=== PATIENT | female | born 1940 | race Caucasian/White ===

== ENCOUNTER 2016-11-11 20:14 | Inpatient (IN) | payer MEDICARE ==
[2016-11-11 22:34] LABS: BASO % 0.2 % (0.0-2.0); EOS % 0.2 % (0.0-4.0); HEMATOCRIT 42.2 % (34.0-47.0); LYMPH # 1.4 K/uL (1.0-4.3); LYMPH % 10.7 % (20.0-40.0); MEAN CELL VOLUME 92.8 fL (81.0-99.0); MEAN CORPUSCULAR HEMOGLOBIN 30.4 pg (27.0-31.0); MEAN CORPUSCULAR HGB CONC 32.7 g/dL (33.0-37.0); MEAN PLATELET VOLUME 8.5 fL (7.2-11.7); MONO # 0.7 K/uL (0.0-0.8); MONO % 5.2 % (0.0-10.0); RED CELL DISTRIBUTION WIDTH 14.3 % (11.5-14.5); WHITE BLOOD COUNT 13.1 K/uL (4.8-10.8)
[2016-11-11 22:40] LABS: CHLORIDE 103 mmol/L (98-107)
[2016-11-11 22:41] LABS: POTASSIUM 3.9 mmol/L (3.6-5.2); SODIUM 141 mmol/L (132-148)
[2016-11-11] MEDS ORDERED: HYDROmorphone 0.5 mg/0.5 ml ISec IVP STA (22:41)
[2016-11-11 22:43] LABS: ALB/GLOB RATIO 1.4 (1.0-2.1); ALKALINE PHOSPHATASE 55 U/L (38-126); ALT/SGPT 25 U/L (9-52); AST/SGOT 31 U/L (14-36); BILIRUBIN,TOTAL 0.3 mg/dL (0.2-1.3); BLOOD UREA NITROGEN 24 mg/dL (7-17); CARBON DIOXIDE 25 mmol/L (22-30); GFR AFRICAN-AMERICAN > 60; TOTAL PROTEIN 7.1 g/dL (6.3-8.3)
[2016-11-11 22:44] LABS: CALCIUM 8.8 mg/dl (8.6-10.4); GLUCOSE,RANDOM 103 mg/dL (65-105)
--- NOTE | 2016-11-11 22:58 | C.PDOC ---
History Of Present Illness 76 year old female presents to the ED with complaints of left hip pain after falling from standing at home. Patient was able to crawl to telephone to call EMS. She has a history of a right hip fracture and replacement by Dr. Kulwinder Winston. Patient denies any other complaints at this time. Time Seen by Provider: 11/11/16 22:02 Chief Complaint (Nursing): Trauma History Per: Patient History/Exam Limitations: no limitations Onset/Duration Of Symptoms: Hrs Current Symptoms Are (Timing): Still Present Additional History Per: EMS - Hip Description Of Injury: Fell Past Medical History Reviewed: Historical Data, Nursing Documentation, Vital Signs Vital Signs: Last Vital Signs Temp 97.8 F 11/11/16 20:29 Pulse 64 11/11/16 20:29 Resp 18 11/11/16 20:29 BP 123/65 11/11/16 20:29 Pulse Ox 96 11/11/16 23:53 - Medical History PMH: Anxiety, Arthritis, COPD, HTN, Hypercholesterolemia Surgical History: Cholecystectomy Family History: States: No Known Family Hx - Social History Hx Tobacco Use: Yes Hx Alcohol Use: No Hx Substance Use: No - Immunization History Hx Tetanus Toxoid Vaccination: No Hx Influenza Vaccination: Yes Hx Pneumococcal Vaccination: No Review Of Systems Constitutional: Negative for: Fever, Chills, Sweats Respiratory: Negative for: Cough, Shortness of Breath Gastrointestinal: Negative for: Nausea, Vomiting, Abdominal Pain, Diarrhea Physical Exam - Physical Exam Appears: Non-toxic, No Acute Distress Skin: Warm, Dry Head: Other (mild left occipital contusion ) Neck: Supple Cardiovascular: Rhythm Regular Respiratory: No Rales, No Rhonchi, No Stridor, No Wheezing Gastrointestinal/Abdominal: Soft, No Tenderness, No Distention, No Guarding, No Rebound Extremity: Tenderness (left hip tenderness. left leg shortened and rotated ) ED Course And Treatment - Laboratory Results Result Diagrams: 11/11/16 22:28 11/11/16 22:28 Lab Interpretation: Abnormal (mild leukocytosis (prob realted to fall), UA neg.) ECG: Interpreted By Me ECG Rhythm: Sinus Rhythm Interpretation Of ECG: Normal Sinus Rhythm 77 O2 Sat by Pulse Oximetry: 96 (room air ) - Radiology CXR: Interpreted by Me CXR Interpretation: Yes: No Acute Disease - Other Rad L hip X-Ray: Interpreted by Me (+ femoral neck fx, no pelvic fx) Reevaluation Time: 22:56 Reassessment Condition: Improved - Physician Consult Information Outcome Of Conversation: 2299: d/w Dr. Nico Villalba- PMD- ok to med/surg. 2299: text to Dr. Aamir Winston (Orthopedics who performed the pt's R hip fx/ replacement) will be on Consult Medical Decision Making Medical Decision Making: fall from standing, tripped and fell, no pre-syncopal head CT neg. 0000: though many narcotics "allergies" usually rash, the pt tolerated Dilaudid IV without consequence. Disposition Doctor Will See Patient In The: Hospital Counseled Patient/Family Regarding: Studies Performed, Diagnosis - Disposition Disposition: HOSPITALIZED Disposition Time: 22:59 Condition: GOOD - Clinical Impression Clinical Impression: Hip fracture, left - Scribe Statement The provider has reviewed the documentation as recorded by the Scribe Aleyda Cardozo All medical record entries made by the Scribe were at my direction and personally dictated by me. I have reviewed the chart and agree that the record accurately reflects my personal performance of the history, physical exam, medical decision making, and the department course for this patient. I have also personally directed, reviewed, and agree with the discharge instructions and disposition.
--- NOTE | 2016-11-11 23:22 | CT ---
EXAM: CT Head Without Intravenous Contrast CLINICAL HISTORY: 76 years old, female; Injury or trauma; Fall; Initial encounter; Abrasion; Head, generalized; Additional info: Fall from standing, l occiput contusion TECHNIQUE: Axial computed tomography images of the head/brain without intravenous contrast. This CT exam was performed using one or more of the following dose reduction techniques: automated exposure control, adjustment of the mA and/or kV according to patient size, and/or use of iterative reconstruction technique. EXAM DATE/TIME: 11/11/2016 10:07 PM COMPARISON: No relevant prior studies available. FINDINGS: There is subcutaneous soft tissue swelling left parietal region. No intracranial hemorrhage. No extra axial collections. No intracranial edema. Trace mucosal thickening sphenoid sinuses. No depressed fractures. IMPRESSION: No acute intracranial injury.
[2016-11-11 23:30] LABS: RBC URINE 1 /hpf (0-3); URINE BACTERIA OCC (<OCC); URINE BILIRUBIN NEGATIVE (NEGATIVE); URINE BLOOD NEGATIVE (NEGATIVE); URINE COLOR Yellow (YELLOW); URINE GLUCOSE (UA) NORMAL (Normal); URINE KETONE NEGATIVE (NEGATIVE); URINE LEUKOCYTE ESTERASE TRACE Leu/uL (Negative); URINE PROTEIN NEGATIVE (NEGATIVE); URINE UROBILINOGEN NORMAL mg/dL (0.2-1.0); WBC URINE 4 /hpf (0-5)
[2016-11-12] MEDS ORDERED: ceFAZolin IV 2 gm in Dextrose 50 ML IVPB SCH (01:15)
[2016-11-12] MEDS: HYDROmorphone 1 mg/ml ISec IVP PRN (05:19)
[2016-11-12 06:59] LABS: CHLORIDE 106 mmol/L (98-107); POTASSIUM 3.8 mmol/L (3.6-5.2); SODIUM 141 mmol/L (132-148)
[2016-11-12 07:01] LABS: MEAN CELL VOLUME 92.6 fL (81.0-99.0); MEAN CORPUSCULAR HEMOGLOBIN 30.5 pg (27.0-31.0); MEAN CORPUSCULAR HGB CONC 32.9 g/dL (33.0-37.0); MEAN PLATELET VOLUME 8.8 fL (7.2-11.7); RED CELL DISTRIBUTION WIDTH 14.2 % (11.5-14.5); WHITE BLOOD COUNT 9.4 K/uL (4.8-10.8)
[2016-11-12 07:02] LABS: BLOOD UREA NITROGEN 23 mg/dL (7-17); CALCIUM 8.7 mg/dl (8.6-10.4); CARBON DIOXIDE 23 mmol/L (22-30); GFR AFRICAN-AMERICAN > 60; GLUCOSE,RANDOM 105 mg/dL (65-105)
[2016-11-12 07:32] LABS: INR 1.1
[2016-11-12] MEDS: Ranolazine 500 mg Extended Release Tablets PO SCH (09:00)
[2016-11-12] MEDS: Pantoprazole 40 mg EC Tab PO SCH (09:19)
[2016-11-12] MEDS: Enoxaparin 40 mg Syringe SC SCH (10:00)
[2016-11-12] MEDS ORDERED: Ergocalciferol 50,000 Intl Units Cap PO SCH (10:00)
--- NOTE | 2016-11-12 10:08 | RAD ---
PROCEDURE: CHEST RADIOGRAPH, 1 VIEW HISTORY: SOB COMPARISON: 07/29/2012 FINDINGS: LUNGS: Interstitial markings are slightly increased and coarsened which may in part be due to low lung volumes PLEURA: No pneumothorax or pleural fluid seen. CARDIOVASCULAR: Cardiomegaly. OSSEOUS STRUCTURES: No significant abnormalities. VISUALIZED UPPER ABDOMEN: Normal. OTHER FINDINGS: None. IMPRESSION: Interstitial markings are slightly increased and coarsened which may in part be due to low lung volumes
[2016-11-12 10:33] LABS: RBC URINE < 1 /hpf (0-3); URINE BILIRUBIN NEGATIVE (NEGATIVE); URINE BLOOD NEGATIVE (NEGATIVE); URINE COLOR Yellow (YELLOW); URINE GLUCOSE (UA) NORMAL (Normal); URINE KETONE NEGATIVE (NEGATIVE); URINE LEUKOCYTE ESTERASE NEG Leu/uL (Negative); URINE PROTEIN NEGATIVE (NEGATIVE); URINE UROBILINOGEN NORMAL mg/dL (0.2-1.0); WBC URINE < 1 /hpf (0-5)
--- NOTE | 2016-11-12 10:53 | RAD ---
PROCEDURE: Pelvis left hip HISTORY: fall to L hip, ? fx COMPARISON: 09/16/2016 TECHNIQUE: Frontal view of the pelvis and frogleg lateral view left hip FINDINGS: Subcapital fracture with superior distraction/ displacement of the larger proximal femoral component and varus angulation. IMPRESSION: Subcapital fracture left femoral neck as above
--- NOTE | 2016-11-12 14:10 | CP.PCM.HP ---
History of Present Illness - History of Present Illness History of Present Illness: 76-year-old female with past medical history of hypertension, prior cardiac w/u included cardiac cath x 3, latest about 4 years ago with nonsignificant CAD, presented to the ED with complaints of left hip pain after falling from standing at home. Patient was able to crawl to telephone to call EMS. She has a history of right hip fracture and replacement by Dr. Kulwinder Winston. Patient denies any other complaints at this time. Present on Admission - Present on Admission Any Indicators Present on Admission: No Past Patient History - Infectious Disease Hx of Infectious Diseases: None - Past Social History Smoking Status: Light Smoker < 10 Cigarettes Daily - CARDIAC Hx Hypercholesterolemia: Yes Hx Hypertension: Yes - PULMONARY Hx Chronic Obstructive Pulmonary Disease (COPD): Yes - NEUROLOGICAL Hx Neurological Disorder: No - HEENT Hx HEENT Problems: No - RENAL Hx Chronic Kidney Disease: No - ENDOCRINE/METABOLIC Hx Endocrine Disorders: No - HEMATOLOGICAL/ONCOLOGICAL Hx Blood Disorders: No Hx Cancer: Yes (Right mastectomy) - INTEGUMENTARY Hx Dermatological Problems: No - MUSCULOSKELETAL/RHEUMATOLOGICAL Hx Falls: Yes - GASTROINTESTINAL Hx Gastrointestinal Disorders: Yes Hx Gastroesophageal Reflux: Yes - GENITOURINARY/GYNECOLOGICAL Hx Genitourinary Disorders: No - PSYCHIATRIC Hx Substance Use: No - SURGICAL HISTORY Hx Cholecystectomy: Yes - ANESTHESIA Hx Anesthesia: Yes Hx Anesthesia Reactions: No Hx Malignant Hyperthermia: No Meds Home Medications: Home Medication List Medication Instructions Recorded Confirmed Type ALPRAZolam [Xanax] 1 mg PO HS tab 11/15/16 Rx Enoxaparin [Lovenox] 40 mg SC DAILY syr 11/15/16 Rx Metoprolol Tartrate [Lopressor] 50 mg PO BID tab 11/15/16 Rx Pantoprazole [Protonix EC Tab] 40 mg PO DAILY ect 11/15/16 Rx Ranolazine [Ranexa] 1,[address] 11/15/16 Rx Rosuvastatin Calcium [Crestor] 5 mg PO HS tab 11/15/16 Rx amLODIPine [Norvasc] 10 mg PO DAILY tab 11/15/16 Rx Allergies/Adverse Reactions: Allergies Allergy/AdvReac Type Severity Reaction Status Date / Time acetaminophen [From Percocet] Allergy RASH Verified 02/04/17 09:45 codeine Allergy RASH Verified 02/04/17 09:45 morphine Allergy RASH Verified 02/04/17 09:45 oxycodone Allergy RASH Verified 02/04/17 09:45 oxycodone HCl [From Percocet] Allergy RASH Verified 02/04/17 09:45 shellfish derived Allergy RASH Verified 02/04/17 09:45 Physical Exam - Constitutional Appears: Well - Head Exam Head Exam: ATRAUMATIC, NORMAL INSPECTION, NORMOCEPHALIC - Eye Exam Eye Exam: EOMI, Normal appearance, PERRL Pupil Exam: NORMAL ACCOMODATION, PERRL - ENT Exam ENT Exam: Mucous Membranes Moist, Normal Exam - Neck Exam Neck exam: Positive for: Normal Inspection - Respiratory Exam Respiratory Exam: Decreased Breath Sounds - Cardiovascular Exam Cardiovascular Exam: REGULAR RHYTHM, +S1, +S2 - GI/Abdominal Exam GI & Abdominal Exam: Diminished Bowel Sounds, Soft - Rectal Exam Rectal Exam: Deferred Results - Vital Signs Recent Vital Signs: Last Vital Signs Temp 98.5 F 11/12/16 00:45 Pulse 77 11/12/16 07:30 Resp 18 11/12/16 00:45 BP 126/77 11/12/16 00:45 Pulse Ox 95 11/12/16 00:45 - Labs Result Diagrams: 11/15/16 06:30 11/15/16 06:47 Labs: Laboratory Results - last 24 hr 11/11/16 11/12/16 11/12/16 23:31 06:40 10:26 WBC 9.4 RBC 4.43 Hgb 13.5 Hct 41.0 MCV 92.6 MCH 30.5 MCHC 32.9 L RDW 14.2 Plt Count 229 MPV 8.8 PT 12.1 INR 1.1 APTT 30 Sodium 141 Potassium 3.8 Chloride 106 Carbon Dioxide 23 Anion Gap 16 BUN 23 H Creatinine 0.7 Est GFR ( Amer) > 60 Est GFR (Non-Af Amer) > 60 Random Glucose 105 Calcium 8.7 Urine Color Yellow Yellow Urine Clarity Clear Clear Urine pH 6.0 5.0 Ur Specific [place] 1.015 1.017 Urine Protein Negative Negative Urine Glucose (UA) Normal Normal Urine Ketones Negative Negative Urine Blood Negative Negative Urine Nitrate Negative Negative Urine Bilirubin Negative Negative Urine Urobilinogen Normal Normal Ur Leukocyte Esterase Trace Neg Urine WBC (Auto) 4 < 1 Urine RBC (Auto) 1 < 1 Ur Squamous Epith Cells < 1 Urine Bacteria Occ H Assessment & Plan (1) Acute blood loss anemia Status: Acute (2) Arthritis Status: Acute (3) Bursitis Status: Acute (4) Contusion of face Status: Acute (5) Hip fracture, left Status: Acute (6) Hip pain, right Status: Acute (7) Left displaced femoral neck fracture Status: Acute (8) Leg pain, right Status: Acute (9) Lumbar radiculopathy Status: Acute (10) Preprocedural cardiovascular examination Status: Acute (11) Sciatica Status: Acute (12) Hypertension Status: Chronic - Assessment and Plan (Free Text) Plan: spoke to son and family morgan marina ekg seen awaiting for cardio clearnce for surg by dr. bianca power as ordered
--- NOTE | 2016-11-12 14:11 | CP.PCM.CON ---
History of Present Illness - History of Present Illness History of Present Illness: 76 year old with HTN, prior cardiac w/u included cardiac cath X 3, latest about 4 years ago with non significant CAD, was brought to the ED after a fall with Hip FX, no prior TX, CHF or CVA + mastectomy 98. today's Echo with NL LV no Review of Systems - Constitutional Constitutional: Weakness. absent: Anorexia - EENT Eyes: absent: Discharge Ears: absent: Ear Discharge, Dizziness Nose/Mouth/Throat: absent: Epistaxis - Cardiovascular Cardiovascular: absent: Acrocyanosis, Chest Pain, Diaphoresis, Leg Edema, Palpitations, Syncope - Respiratory Respiratory: absent: Cough, Dyspnea, Hemoptysis - Gastrointestinal Gastrointestinal: absent: Abdominal Pain, Diarrhea, Vomiting - Genitourinary Genitourinary: absent: Change in Urinary Stream Past Patient History - Infectious Disease Hx of Infectious Diseases: None - Past Social History Smoking Status: Light Smoker < 10 Cigarettes Daily - CARDIAC Hx Hypercholesterolemia: Yes Hx Hypertension: Yes - PULMONARY Hx Chronic Obstructive Pulmonary Disease (COPD): Yes - NEUROLOGICAL Hx Neurological Disorder: No - HEENT Hx HEENT Problems: No - RENAL Hx Chronic Kidney Disease: No - ENDOCRINE/METABOLIC Hx Endocrine Disorders: No - HEMATOLOGICAL/ONCOLOGICAL Hx Blood Disorders: No Hx Cancer: Yes (Right mastectomy) - INTEGUMENTARY Hx Dermatological Problems: No - MUSCULOSKELETAL/RHEUMATOLOGICAL Hx Falls: Yes - GASTROINTESTINAL Hx Gastrointestinal Disorders: Yes Hx Gastroesophageal Reflux: Yes - GENITOURINARY/GYNECOLOGICAL Hx Genitourinary Disorders: No - PSYCHIATRIC Hx Substance Use: No - SURGICAL HISTORY Hx Cholecystectomy: Yes - ANESTHESIA Hx Anesthesia: Yes Hx Anesthesia Reactions: No Hx Malignant Hyperthermia: No Meds Allergies/Adverse Reactions: Allergies Allergy/AdvReac Type Severity Reaction Status Date / Time acetaminophen [From Percocet] Allergy RASH Verified 11/11/16 20:36 codeine Allergy RASH Verified 11/11/16 20:36 morphine Allergy RASH Verified 11/11/16 20:36 oxycodone Allergy RASH Verified 11/11/16 20:36 oxycodone HCl [From Percocet] Allergy RASH Verified 11/11/16 20:36 shellfish derived Allergy RASH Verified 11/11/16 20:36 - Medications Medications: Current Medications Alprazolam (Xanax) 1 mg PO HS [place] Amlodipine Besylate (Norvasc) 10 mg PO DAILY [facility] Enoxaparin Sodium (Lovenox) 40 mg SC DAILY [facility] Ergocalciferol (Drisdol 50,000 Intl Units Cap) 1 cap PO QWK [facility] Hydromorphone HCl (Dilaudid) 1 mg IVP Q8H PRN PRN Reason: Pain, moderate (4-7) Last Admin: 11/12/16 05:19 Dose: 1 mg Metoprolol Tartrate (Lopressor) 50 mg PO BID [facility] Last Admin: 11/12/16 09:19 Dose: 50 mg Nitroglycerin (Nitrostat Sl Tab) 0.4 mg SL Q5M PRN PRN Reason: pain Pantoprazole Sodium (Protonix Ec Tab) 40 mg PO DAILY [facility] Last Admin: 11/12/16 09:19 Dose: 40 mg Pneumococcal Polyvalent Vaccine (Pneumovax 23 Vaccine) 0.5 ml IM .ONCE ONE Stop: 11/14/16 10:01 Ranolazine (Ranexa) 1,000 mg PO DAILY [facility] Last Admin: 11/12/16 09:00 Dose: 1,000 mg Rosuvastatin Calcium (Crestor) 5 mg PO [facility] Physical Exam - Constitutional Appears: Non-toxic - Head Exam Head Exam: absent: ATRAUMATIC - Eye Exam Eye Exam: EOMI, PERRL - ENT Exam ENT Exam: Mucous Membranes Moist - Neck Exam Neck exam: Negative for: Lymphadenopathy, Thyromegaly - Respiratory Exam Respiratory Exam: Clear to Auscultation Bilateral. absent: Rales - Cardiovascular Exam Cardiovascular Exam: REGULAR RHYTHM, Systolic Murmur - GI/Abdominal Exam GI & Abdominal Exam: Normal Bowel Sounds. absent: Organomegaly - Rectal Exam Rectal Exam: Deferred - Extremities Exam Extremities exam: Positive for: normal capillary refill. Negative for: calf tenderness - Neurological Exam Neurological exam: Alert, Oriented x3 - Psychiatric Exam Psychiatric exam: Normal Mood - Skin Skin Exam: Dry Results - Vital Signs Recent Vital Signs: Last Vital Signs Temp 98.5 F 11/12/16 00:45 Pulse 77 11/12/16 07:30 Resp 18 11/12/16 00:45 BP 126/77 11/12/16 00:45 Pulse Ox 95 11/12/16 00:45 - Labs Result Diagrams: 11/12/16 06:40 11/12/16 06:40 Labs: Laboratory Results - last 24 hr 11/11/16 11/12/16 11/12/16 23:31 06:40 10:26 WBC 9.4 RBC 4.43 Hgb 13.5 Hct 41.0 MCV 92.6 MCH 30.5 MCHC 32.9 L RDW 14.2 Plt Count 229 MPV 8.8 PT 12.1 INR 1.1 APTT 30 Sodium 141 Potassium 3.8 Chloride 106 Carbon Dioxide 23 Anion Gap 16 BUN 23 H Creatinine 0.7 Est GFR ( Amer) > 60 Est GFR (Non-Af Amer) > 60 Random Glucose 105 Calcium 8.7 Urine Color Yellow Yellow Urine Clarity Clear Clear Urine pH 6.0 5.0 Ur Specific [place] 1.015 1.017 Urine Protein Negative Negative Urine Glucose (UA) Normal Normal Urine Ketones Negative Negative Urine Blood Negative Negative Urine Nitrate Negative Negative Urine Bilirubin Negative Negative Urine Urobilinogen Normal Normal Ur Leukocyte Esterase Trace Neg Urine WBC (Auto) 4 < 1 Urine RBC (Auto) 1 < 1 Ur Squamous Epith Cells < 1 Urine Bacteria Occ H Assessment & Plan (1) Preprocedural cardiovascular examination Status: Acute Comment: Stable cardiac, acceptable risk for cardiac complication from surgery (2) Hip fracture, left Status: Acute Comment: for ORIF (3) Contusion of face Status: Acute Comment: observe (4) Hypertension Status: Chronic
--- NOTE | 2016-11-12 15:20 | CARD ---
APPROVED REPORT EXAM: Two-dimensional and M-mode echocardiogram with Doppler and color Doppler. Other Information Quality : AverageRhythm : NSR INDICATION PRE OP/ L HIP FRACTURE RISK FACTORS Smoking M-Mode DIMENSIONS RVDd1.11 (2.1-3.2cm)Left Atrium (MM)4.57 (2.5-4.0cm) IVSd0.80 (0.7-1.1cm)Aortic Root2.84 (2.2-3.7cm) LVDd4.62 (4.0-5.6cm)Aortic Cusp Exc.1.48 (1.5-2.0cm) PWd0.94 (0.7-1.1cm)FS (%) 31 % LVDs3.19 (2.0-3.8cm)LVEF (%)58 (>50%) Mitral Valve MV E Bvgfyuyz50.5cm/sMV A Qouzisyf22.7cm/sE/A ratio0.8 TDI E/Lateral E'0.0E/Medial E'0.0 Tricuspid Valve TR Peak [id number]/sTR Peak Gr.[id number] LEFT VENTRICLE The left ventricle is normal size. There is normal left ventricular wall thickness. The left ventricular systolic function is normal. The left ventricular ejection fraction is within the normal range. There is normal LV segmental wall motion. Transmitral Doppler flow pattern is Grade I-abnormal relaxation pattern. Normal left atrial pressure by Tissue Doppler. RIGHT VENTRICLE The right ventricle is normal size. The right ventricular systolic function is normal. ATRIA The left atrium is mildly dilated. The right atrium size is normal. AORTIC VALVE The aortic valve shows some slight focal sclerosis, but opens well. No aortic regurgitation is present. MITRAL VALVE The mitral valve is normal in structure. There is no mitral valve regurgitation noted. TRICUSPID VALVE The tricuspid valve is normal in structure. There is mild tricuspid regurgitation. PULMONIC VALVE The pulmonic valve is not well visualized. GREAT VESSELS The aortic root is normal in size. The IVC is normal in size and collapses >50% with inspiration. PERICARDIAL EFFUSION There is no pericardial effusion. <Conclusion> The left ventricular systolic function is normal. There is normal LV segmental wall motion. Transmitral Doppler flow pattern is Grade I-abnormal relaxation pattern. Normal left atrial pressure by Tissue Doppler. The right ventricular systolic function is normal. No significant valvular abnormality. No pericardial effusion.
[2016-11-12] MEDS ORDERED: Bupivacaine Liposomal Inj 20 ml INFIL ONE (15:50)
[2016-11-12] MEDS ORDERED: Lidocaine 1% Inj (20ml) ONE (16:08)
[2016-11-12] MEDS: ceFAZolin IV 2 gm in Dextrose 50 ML IVPB ONE ×2 (16:13→17:20)
[2016-11-12] MEDS ORDERED: Lactated Ringer's 1,000 ML IV ONE ×3 (16:13→19:05)
[2016-11-12] MEDS: Bacitracin 150,000 UNIT in Sodium Chloride 0.9% Irrig 3,000 ML IR SCH ×2 (16:30→17:40)
[2016-11-12] MEDS ORDERED: Propofol 10 mg/ml Inj (20 ML) ONE (17:05)
[2016-11-12] MEDS ORDERED: Succinylcholine Chloride 20 mg/ml Syr (5 ml) IV ONE (17:05)
[2016-11-12] MEDS ORDERED: Rocuronium 10 mg/ml (5 ml) ONE (17:05)
[2016-11-12] MEDS ORDERED: Midazolam 2 MG/2 ML VIAL ONE (17:05)
[2016-11-12] MEDS ORDERED: Bupivacaine 0.5% Inj(30mL) ONE (18:51)
[2016-11-12] MEDS ORDERED: HYDROmorphone 1 mg/ml ISec IVP PRN (19:25)
[2016-11-12] MEDS ORDERED: Dexamethasone 4 mg/1 ml IVP PRN (19:26)
[2016-11-12] MEDS ORDERED: HYDROmorphone 0.5 mg/0.5 ml ISec IVP PRN (19:26)
[2016-11-12] MEDS ORDERED: DiphenhydrAMINE 50 mg/ml Inj IVP PRN (19:26)
[2016-11-12] MEDS ORDERED: Lactated Ringer's 1,000 ML IV SCH (19:30)
[2016-11-12] MEDS ORDERED: Oxycodone/Acetaminophen 5/325 mg Tab PO PRN (19:37)
--- NOTE | 2016-11-12 20:23 | OP ---
PROCEDURE DATE: 11/12/2016 PREOPERATIVE DIAGNOSIS: Left hip femoral neck fracture. POSTOPERATIVE DIAGNOSIS: Left hip femoral neck fracture. PROCEDURE: Left hip hemiarthroplasty. SURGEON: Timmy Brewer MD. AGRICULTURAL EQUIPMENT OPERATOR: Dr. Blue. Dr. Blue was present and scrubbed throughout the case and assisted in retr action as well as reduction and dislocation of the hip. IMPLANT: Biomet bipolar hemiarthroplasty. ESTIMATED BLOOD LOSS: 150 mL. INDICATIONS FOR PROCEDURE: This is a 76-year-old female who presented status post fall with left hip pain and inability to ambulate. Clinical and radiographic examination is consistent with a displace d left hip femoral neck fracture. Recommendation was for a left hip hemiarthroplasty once the patien t was medically optimized. The risks, benefits, and alternatives of procedure were discussed with th e patient and informed consent was obtained. OPERATIVE PROCEDURE: After surgical site was found and verified in preoperative holding area, the pa tient was taken to the operating room and placed supine on the operating table. After administration of general anesthesia, patient received 2 grams of Ancef IV. The patient was positioned in lateral decubitus position with the left hip up towards the ceiling. Care was taken to make sure all bony pr ominences and nerves were well padded and protected. Venodyne boot was placed on the nonoperative ex tremity and the left lower extremity was prepped and draped in usual sterile fashion. Bony landmarks were identified about the left hip. An approximately 8 cm curvilinear incision was made over the pr oximal femur. Soft tissue was dissected down to the fascia and the fascia was incised. The Charnley retractor was placed. Short external rotators were identified, tagged and resected off the proximal femur. T-type capsulotomy was performed and the hip was dislocated. Using a corkscrew, the femoral head was removed and this was passed off the field to be measured. Acetabulum was inspected and no obvious fractures were appreciated. No debris was appreciated in the acetabulum. At this point, att ention was directed to the proximal femur. Femoral neck resection was performed. At this point, the medullary canal of the proximal femur was reamed and broached sequentially to allow for a 10 mm pres s fit stem. The calcar was planed and with the trial stem, trial neck, and head in place, the hip wa s reduced and it was taken through range of motion and it was noted to be stable with approximately e qual limb lengths. At this point, the hip was dislocated and the trial components were removed. The hip joint was pulse lavaged with antibiotic saline solution. The bony surfaces were dried and the a ctual stem was then impacted into place being careful to maintain the proper version. The actual hea d was then impacted over the stem and the hip was reduced. Again, the hip was taken through range of motion and was noted to be stable with equal limb lengths. At this point, our incision was cl osed by first repairing the capsule to bone and then the short external rotators also to bone. The d eep fascia was closed using #1 Vicryl suture. Subcutaneous tissue was closed using 0 Vicryl and 2-0 Vicryl suture and the skin was closed using renzo. A sterile dressing was applied and an abduction pillow was placed. The patient was transferred supine, awakened and taken to recovery room in stabl e condition. Timmy Brewer MD cc: [id number] TT: 11/12/2016 20:22:25 lee
[2016-11-12] MEDS: Lactated Ringer's 1,000 ML IV SCH (20:45)
[2016-11-13] MEDS: ceFAZolin IV 2 gm in Dextrose 50 ML IVPB SCH ×2 (01:12→09:15)
[2016-11-13] MEDS: HYDROmorphone 1 mg/ml ISec IVP PRN ×2 (03:47→17:43)
[2016-11-13] MEDS: Lactated Ringer's 1,000 ML IV SCH ×3 (06:07→21:50)
--- NOTE | 2016-11-13 08:01 | CP.PCM.PN ---
Subjective - Date & Time of Evaluation Date of Evaluation: 11/13/16 Time of Evaluation: 11:00 - Subjective Subjective: had surgry did well for rehab Objective - Vital Signs/Intake and Output Vital Signs (last 24 hours): Temp Pulse Resp BP Pulse Ox 99.1 F 92 H 20 119/73 97 11/13/16 03:46 11/13/16 03:46 11/13/16 03:46 11/13/16 03:46 11/13/16 03:46 Intake and Output: 11/13/16 11/13/16 06:59 18:59 Intake Total 300 Output Total 1050 Balance -750 - Medications Medications: Current Medications Alprazolam (Xanax) 1 mg PO HS [facility] Last Admin: 11/12/16 22:33 Dose: 1 mg Amlodipine Besylate (Norvasc) 10 mg PO DAILY [facility] Enoxaparin Sodium (Lovenox) 40 mg SC DAILY [facility] Enoxaparin Sodium (Lovenox) 40 mg SC DAILY [facility] Ergocalciferol (Drisdol 50,000 Intl Units Cap) 1 cap PO QWK [facility] Hydromorphone HCl (Dilaudid) 1 mg IVP Q8H PRN PRN Reason: Pain, moderate (4-7) Last Admin: 11/13/16 03:47 Dose: 1 mg Hydromorphone HCl (Dilaudid) 1 mg IVP Q4H PRN PRN Reason: Pain, severe (8-10) Lactated Ringer's (Lactated Ringer's) 1,000 mls @ 100 mls/hr IV .Q10H [facility] Lactated Ringer's (Lactated Ringer's) 1,000 mls @ 75 mls/hr IV .[id number] [facility] Last Admin: 11/13/16 06:07 Dose: 75 mls/hr Cefazolin Sodium/Dextrose (Ancef Iv 2 Gm Duplex) 50 mls @ 100 mls/hr IVPB Q8H [facility] Stop: 11/13/16 09:44 Last Admin: 11/13/16 01:12 Dose: 100 mls/hr Metoprolol Tartrate (Lopressor) 50 mg PO BID [facility] Last Admin: 11/12/16 18:00 Dose: Not Given Nitroglycerin (Nitrostat Sl Tab) 0.4 mg SL Q5M PRN PRN Reason: pain Pantoprazole Sodium (Protonix Ec Tab) 40 mg PO DAILY [facility] Last Admin: 11/12/16 09:19 Dose: 40 mg Pneumococcal Polyvalent Vaccine (Pneumovax 23 Vaccine) 0.5 ml IM .ONCE ONE Stop: 11/14/16 10:01 Ranolazine (Ranexa) 1,000 mg PO DAILY [facility] Last Admin: 11/12/16 09:00 Dose: 1,000 mg Rosuvastatin Calcium (Crestor) 5 mg PO HS [facility] Last Admin: 11/12/16 22:33 Dose: 5 mg - Labs Labs: 11/12/16 06:40 11/12/16 06:40 PT 12.1 SECONDS (9.7-12.2) 11/12/16 06:40 INR 1.1 11/12/16 06:40 APTT 30 SECONDS (21-34) 11/12/16 06:40 - Constitutional Appears: Non-toxic - Head Exam Head Exam: ATRAUMATIC - Eye Exam Eye Exam: EOMI - ENT Exam ENT Exam: Mucous Membranes Moist - Neck Exam Neck Exam: absent: Lymphadenopathy, Thyromegaly - Respiratory Exam Respiratory Exam: Clear to Ausculation Bilateral. absent: Rales - Cardiovascular Exam Cardiovascular Exam: REGULAR RHYTHM, Murmur - GI/Abdominal Exam GI & Abdominal Exam: Normal Bowel Sounds. absent: Organomegaly - Rectal Exam Rectal Exam: Deferred - Extremities Exam Extremities Exam: Normal Capillary Refill. absent: Calf Tenderness - Neurological Exam Neurological Exam: Alert, Oriented x3 - Psychiatric Exam Psychiatric exam: Normal Affect - Skin Skin Exam: Normal Color Assessment and Plan (1) Preprocedural cardiovascular examination Status: Acute (2) Hip fracture, left Status: Acute (3) Contusion of face Status: Acute (4) Hypertension Status: Chronic
[2016-11-13 08:07] LABS: HEMATOCRIT 35.2 % (34.0-47.0); MEAN CELL VOLUME 92.2 fL (81.0-99.0); MEAN CORPUSCULAR HEMOGLOBIN 30.5 pg (27.0-31.0); MEAN CORPUSCULAR HGB CONC 33.1 g/dL (33.0-37.0); MEAN PLATELET VOLUME 9.1 fL (7.2-11.7); RED CELL DISTRIBUTION WIDTH 14.4 % (11.5-14.5); WHITE BLOOD COUNT 7.6 K/uL (4.8-10.8)
[2016-11-13 08:32] LABS: CHLORIDE 106 mmol/L (98-107)
[2016-11-13 08:33] LABS: POTASSIUM 3.8 mmol/L (3.6-5.2); SODIUM 137 mmol/L (132-148)
[2016-11-13 08:35] LABS: CARBON DIOXIDE 25 mmol/L (22-30); GFR AFRICAN-AMERICAN > 60
[2016-11-13 08:36] LABS: BLOOD UREA NITROGEN 15 mg/dL (7-17); CALCIUM 7.6 mg/dl (8.6-10.4); GLUCOSE,RANDOM 98 mg/dL (65-105)
[2016-11-13] MEDS: Enoxaparin 40 mg Syringe SC SCH ×2 (09:33→17:42)
[2016-11-13] MEDS: Pantoprazole 40 mg EC Tab PO SCH (09:52)
[2016-11-13] MEDS: Ranolazine 500 mg Extended Release Tablets PO SCH (09:52)
--- NOTE | 2016-11-13 11:41 | CP.PCM.PN ---
Subjective - Date & Time of Evaluation Date of Evaluation: 11/13/16 Time of Evaluation: 13:20 - Subjective Subjective: clinically same Objective - Vital Signs/Intake and Output Vital Signs (last 24 hours): Temp Pulse Resp BP Pulse Ox 98.6 F 91 H 18 118/66 95 11/13/16 07:35 11/13/16 07:35 11/13/16 07:35 11/13/16 07:35 11/13/16 07:35 Intake and Output: 11/13/16 11/13/16 06:59 18:59 Intake Total 300 Output Total 1050 Balance -750 - Medications Medications: Current Medications Alprazolam (Xanax) 1 mg PO HS [facility] Last Admin: 11/12/16 22:33 Dose: 1 mg Amlodipine Besylate (Norvasc) 10 mg PO DAILY [facility] Last Admin: 11/13/16 09:53 Dose: 10 mg Enoxaparin Sodium (Lovenox) 40 mg SC DAILY [facility] Last Admin: 11/13/16 09:33 Dose: Not Given Enoxaparin Sodium (Lovenox) 40 mg SC DAILY [facility] Ergocalciferol (Drisdol 50,000 Intl Units Cap) 1 cap PO QWK [facility] Hydromorphone HCl (Dilaudid) 1 mg IVP Q8H PRN PRN Reason: Pain, moderate (4-7) Last Admin: 11/13/16 03:47 Dose: 1 mg Hydromorphone HCl (Dilaudid) 1 mg IVP Q4H PRN PRN Reason: Pain, severe (8-10) Lactated Ringer's (Lactated Ringer's) 1,000 mls @ 100 mls/hr IV .Q10H [facility] Lactated Ringer's (Lactated Ringer's) 1,000 mls @ 75 mls/hr IV .[id number] [facility] Last Admin: 11/13/16 09:20 Dose: Not Given Metoprolol Tartrate (Lopressor) 50 mg PO BID [facility] Last Admin: 11/13/16 10:04 Dose: 50 mg Nitroglycerin (Nitrostat Sl Tab) 0.4 mg SL Q5M PRN PRN Reason: pain Pantoprazole Sodium (Protonix Ec Tab) 40 mg PO DAILY [facility] Last Admin: 11/13/16 09:52 Dose: 40 mg Pneumococcal Polyvalent Vaccine (Pneumovax 23 Vaccine) 0.5 ml IM .ONCE ONE Stop: 11/14/16 10:01 Ranolazine (Ranexa) 1,000 mg PO DAILY [facility] Last Admin: 11/13/16 09:52 Dose: 1,000 mg Rosuvastatin Calcium (Crestor) 5 mg PO HS [facility] Last Admin: 11/12/16 22:33 Dose: 5 mg - Labs Labs: 11/13/16 07:56 11/13/16 07:56 PT 12.1 SECONDS (9.7-12.2) 11/12/16 06:40 INR 1.1 11/12/16 06:40 APTT 30 SECONDS (21-34) 11/12/16 06:40 - Constitutional Appears: Well - Head Exam Head Exam: ATRAUMATIC, NORMAL INSPECTION, NORMOCEPHALIC - Eye Exam Eye Exam: EOMI, Normal appearance, PERRL Pupil Exam: NORMAL ACCOMODATION, PERRL - ENT Exam ENT Exam: Mucous Membranes Moist, Normal Exam - Neck Exam Neck Exam: Full ROM, Normal Inspection. absent: Lymphadenopathy - Respiratory Exam Respiratory Exam: Decreased Breath Sounds - Cardiovascular Exam Cardiovascular Exam: REGULAR RHYTHM, +S1, +S2 - GI/Abdominal Exam GI & Abdominal Exam: Soft, Diminished Bowel Sounds - Rectal Exam Rectal Exam: Deferred Assessment and Plan (1) Acute blood loss anemia Status: Acute (2) Contusion of face Status: Acute (3) Hip fracture, left Status: Acute (4) Hip pain, right Status: Acute (5) Left displaced femoral neck fracture Status: Acute (6) Leg pain, right Status: Acute (7) Lumbar radiculopathy Status: Acute (8) Preprocedural cardiovascular examination Status: Acute (9) Sciatica Status: Acute (10) Hypertension Status: Chronic - Assessment and Plan (Free Text) Plan: Labs reviewed Continue Lovenox IV fluids Cefazolin Vaccines Talk with son Surgery consult Cardio consult
--- NOTE | 2016-11-13 13:27 | RAD ---
PROCEDURE: Pelvis left hip 11/12/2016 HISTORY: s/p left hip hemiarthroplasty COMPARISON: Radiographs pelvis left hip 11/11/2016 TECHNIQUE: Frontal view of the pelvis and both hips as well as frogleg lateral view left hip FINDINGS: Status post left total hip replacement. Hardware appears intact with satisfactory alignment. Expected unremarkable postoperative changes within the surrounding soft tissues IMPRESSION: Status post left total hip replacement. Hardware appears intact with satisfactory alignment. Expected unremarkable postoperative changes within the surrounding soft tissues
[2016-11-13 15:36] VITALS: RESP 20
--- NOTE | 2016-11-14 09:25 | CP.PCM.PN ---
Subjective - Date & Time of Evaluation Date of Evaluation: 11/14/16 Time of Evaluation: 09:25 - Subjective Subjective: Patient states pain in hip is controlled with dilaudid, but when it wears off, she still has a lot of pain. She denies CP/SOB/dizziness/nausea/vomiting. Good appetite. Has not been out of bed yet. Requests placement at [facility]. Objective - Vital Signs/Intake and Output Vital Signs (last 24 hours): Temp Pulse Resp BP Pulse Ox 98.5 F 70 20 113/68 96 11/14/16 07:05 11/14/16 07:30 11/14/16 07:05 11/14/16 07:05 11/14/16 07:05 Intake and Output: 11/14/16 11/14/16 06:59 18:59 Intake Total 1570 Output Total 600 Balance 970 - Medications Medications: Current Medications Alprazolam (Xanax) 1 mg PO HS [facility] Last Admin: 11/13/16 21:46 Dose: 1 mg Amlodipine Besylate (Norvasc) 10 mg PO DAILY [facility] Last Admin: 11/13/16 09:53 Dose: 10 mg Enoxaparin Sodium (Lovenox) 40 mg SC DAILY [facility] Last Admin: 11/13/16 17:42 Dose: 40 mg Ergocalciferol (Drisdol 50,000 Intl Units Cap) 1 cap PO QWK [facility] Last Admin: 11/12/16 10:00 Dose: Not Given Hydromorphone HCl (Dilaudid) 1 mg IVP Q8H PRN PRN Reason: Pain, moderate (4-7) Last Admin: 11/13/16 17:43 Dose: 1 mg Hydromorphone HCl (Dilaudid) 1 mg IVP Q4H PRN PRN Reason: Pain, severe (8-10) Last Admin: 11/14/16 03:50 Dose: 1 mg Metoprolol Tartrate (Lopressor) 50 mg PO BID [facility] Last Admin: 11/13/16 17:41 Dose: 50 mg Nitroglycerin (Nitrostat Sl Tab) 0.4 mg SL Q5M PRN PRN Reason: pain Pantoprazole Sodium (Protonix Ec Tab) 40 mg PO DAILY [facility] Last Admin: 11/13/16 09:52 Dose: 40 mg Pneumococcal Polyvalent Vaccine (Pneumovax 23 Vaccine) 0.5 ml IM .ONCE ONE Stop: 11/14/16 10:01 Ranolazine (Ranexa) 1,000 mg PO DAILY [facility] Last Admin: 11/13/16 09:52 Dose: 1,000 mg Rosuvastatin Calcium (Crestor) 5 mg PO HS [facility] Last Admin: 11/13/16 21:46 Dose: 5 mg - Labs Labs: 11/13/16 07:56 11/13/16 07:56 PT 12.1 SECONDS (9.7-12.2) 11/12/16 06:40 INR 1.1 11/12/16 06:40 APTT 30 SECONDS (21-34) 11/12/16 06:40 - Extremities Exam Additional comments: LLE: dressing changed. Incision intact, scant sang drainage, no erythema. Thigh soft. Hip abduction pillow intact, calves soft NT neg homans, +DP/PT pulses, + ROM ankle DF/PF, toes flex/ext, sensation intact, gauze/tegaderm applied. Assessment and Plan (1) Left displaced femoral neck fracture Assessment & Plan: POD#2 s/p left hip bipolar hemiarthroplasty -PT/OT/posterior hip precautions -VTE proph on lovenox/venodynes/OOB -f/u labs today -d/c [facility] -d/c planning to [facility] -above d/w Dr. Brewer, agrees with above, orthopedically stable for d/c to rehab Status: Acute (2) Acute blood loss anemia Assessment & Plan: labs today, hemodynamically stable Status: Acute
[2016-11-14] MEDS ORDERED: Pneumococcal 23-Valent Vaccine IM ONE (10:00)
[2016-11-14] MEDS: Pantoprazole 40 mg EC Tab PO SCH (10:23)
[2016-11-14] MEDS: Ranolazine 500 mg Extended Release Tablets PO SCH (10:23)
[2016-11-14] MEDS: Enoxaparin 40 mg Syringe SC SCH (10:24)
[2016-11-14 11:36] LABS: HEMATOCRIT 33.6 % (34.0-47.0); MEAN CELL VOLUME 92.3 fL (81.0-99.0); MEAN CORPUSCULAR HEMOGLOBIN 30.5 pg (27.0-31.0); RED CELL DISTRIBUTION WIDTH 13.8 % (11.5-14.5); WHITE BLOOD COUNT 8.7 K/uL (4.8-10.8)
[2016-11-14 11:46] LABS: CHLORIDE 101 mmol/L (98-107)
[2016-11-14 11:47] LABS: POTASSIUM 3.8 mmol/L (3.6-5.2); SODIUM 133 mmol/L (132-148)
[2016-11-14 11:49] LABS: GFR AFRICAN-AMERICAN > 60
[2016-11-14 11:50] LABS: BLOOD UREA NITROGEN 13 mg/dL (7-17); CALCIUM 7.6 mg/dl (8.6-10.4); CARBON DIOXIDE 26 mmol/L (22-30); GLUCOSE,RANDOM 96 mg/dL (65-105)
--- NOTE | 2016-11-14 11:56 | CARD ---
APPROVED REPORT EKG Measurement Heart [id number] <Conclusion> Normal sinus rhythm Left anterior fascicular block Minimal voltage criteria for LVH, may be normal variant Abnormal ECG
--- NOTE | 2016-11-14 13:01 | CP.PCM.PN ---
Subjective - Date & Time of Evaluation Date of Evaluation: 11/14/16 Time of Evaluation: 13:00 - Subjective Subjective: Doing well postop for physical therapy, needs early ambulation.moved to chair Objective - Vital Signs/Intake and Output Vital Signs (last 24 hours): Temp Pulse Resp BP Pulse Ox 98.5 F 70 20 113/68 96 11/14/16 07:05 11/14/16 07:30 11/14/16 07:05 11/14/16 07:05 11/14/16 07:05 Intake and Output: 11/14/16 11/14/16 06:59 18:59 Intake Total 1570 Output Total 600 Balance 970 - Medications Medications: Current Medications Alprazolam (Xanax) 1 mg PO HS [facility] Last Admin: 11/13/16 21:46 Dose: 1 mg Amlodipine Besylate (Norvasc) 10 mg PO DAILY [facility] Last Admin: 11/14/16 10:23 Dose: 10 mg Enoxaparin Sodium (Lovenox) 40 mg SC DAILY [facility] Last Admin: 11/14/16 10:24 Dose: 40 mg Ergocalciferol (Drisdol 50,000 Intl Units Cap) 1 cap PO QWK [facility] Last Admin: 11/12/16 10:00 Dose: Not Given Hydromorphone HCl (Dilaudid) 1 mg IVP Q8H PRN PRN Reason: Pain, moderate (4-7) Last Admin: 11/13/16 17:43 Dose: 1 mg Hydromorphone HCl (Dilaudid) 1 mg IVP Q4H PRN PRN Reason: Pain, severe (8-10) Last Admin: 11/14/16 03:50 Dose: 1 mg Ketorolac Tromethamine (Toradol) 30 mg IVP Q6 PRN PRN Reason: Pain, Mild (1-3) Last Admin: 11/14/16 11:05 Dose: 30 mg Metoprolol Tartrate (Lopressor) 50 mg PO BID [facility] Last Admin: 11/14/16 10:23 Dose: 50 mg Nitroglycerin (Nitrostat Sl Tab) 0.4 mg SL Q5M PRN PRN Reason: pain Pantoprazole Sodium (Protonix Ec Tab) 40 mg PO DAILY [facility] Last Admin: 11/14/16 10:23 Dose: 40 mg Ranolazine (Ranexa) 1,000 mg PO DAILY [facility] Last Admin: 11/14/16 10:23 Dose: 1,000 mg Rosuvastatin Calcium (Crestor) 5 mg PO HS [facility] Last Admin: 11/13/16 21:46 Dose: 5 mg - Labs Labs: 11/14/16 11:33 11/14/16 11:33 PT 12.1 SECONDS (9.7-12.2) 11/12/16 06:40 INR 1.1 11/12/16 06:40 APTT 30 SECONDS (21-34) 11/12/16 06:40 - Constitutional Appears: Non-toxic - Head Exam Head Exam: ATRAUMATIC - Eye Exam Eye Exam: EOMI - ENT Exam ENT Exam: Mucous Membranes Moist - Neck Exam Neck Exam: absent: Lymphadenopathy, Tenderness, Thyromegaly - Respiratory Exam Respiratory Exam: Clear to Ausculation Bilateral. absent: Rales - Cardiovascular Exam Cardiovascular Exam: REGULAR RHYTHM, Murmur - GI/Abdominal Exam GI & Abdominal Exam: Normal Bowel Sounds. absent: Organomegaly - Rectal Exam Rectal Exam: Deferred - Extremities Exam Extremities Exam: Calf Tenderness, Normal Capillary Refill - Neurological Exam Neurological Exam: Alert, Oriented x3 - Psychiatric Exam Psychiatric exam: Normal Affect - Skin Skin Exam: Normal Color Assessment and Plan (1) Preprocedural cardiovascular examination Status: Acute (2) Hip fracture, left Status: Acute (3) Contusion of face Status: Acute (4) Hypertension Status: Chronic
--- NOTE | 2016-11-14 18:02 | CP.PCM.PN ---
Subjective - Date & Time of Evaluation Date of Evaluation: 11/14/16 Time of Evaluation: 13:20 - Subjective Subjective: clinically same Objective - Vital Signs/Intake and Output Vital Signs (last 24 hours): Temp Pulse Resp BP Pulse Ox 98.4 F 79 20 107/64 94 L 11/14/16 15:00 11/14/16 15:00 11/14/16 15:00 11/14/16 15:00 11/14/16 15:00 Intake and Output: 11/14/16 11/14/16 06:59 18:59 Intake Total 1570 Output Total 600 Balance 970 - Medications Medications: Current Medications Alprazolam (Xanax) 1 mg PO HS [facility] Last Admin: 11/13/16 21:46 Dose: 1 mg Amlodipine Besylate (Norvasc) 10 mg PO DAILY [facility] Last Admin: 11/14/16 10:23 Dose: 10 mg Enoxaparin Sodium (Lovenox) 40 mg SC DAILY [facility] Last Admin: 11/14/16 10:24 Dose: 40 mg Ergocalciferol (Drisdol 50,000 Intl Units Cap) 1 cap PO QWK [facility] Last Admin: 11/12/16 10:00 Dose: Not Given Hydromorphone HCl (Dilaudid) 1 mg IVP Q8H PRN PRN Reason: Pain, moderate (4-7) Last Admin: 11/13/16 17:43 Dose: 1 mg Hydromorphone HCl (Dilaudid) 1 mg IVP Q4H PRN PRN Reason: Pain, severe (8-10) Last Admin: 11/14/16 03:50 Dose: 1 mg Ketorolac Tromethamine (Toradol) 30 mg IVP Q6 PRN PRN Reason: Pain, Mild (1-3) Last Admin: 11/14/16 11:05 Dose: 30 mg Metoprolol Tartrate (Lopressor) 50 mg PO BID [facility] Last Admin: 11/14/16 10:23 Dose: 50 mg Nitroglycerin (Nitrostat Sl Tab) 0.4 mg SL Q5M PRN PRN Reason: pain Pantoprazole Sodium (Protonix Ec Tab) 40 mg PO DAILY [facility] Last Admin: 11/14/16 10:23 Dose: 40 mg Ranolazine (Ranexa) 1,000 mg PO DAILY [facility] Last Admin: 11/14/16 10:23 Dose: 1,000 mg Rosuvastatin Calcium (Crestor) 5 mg PO HS [facility] Last Admin: 11/13/16 21:46 Dose: 5 mg - Labs Labs: 11/14/16 11:33 11/14/16 11:33 PT 12.1 SECONDS (9.7-12.2) 11/12/16 06:40 INR 1.1 11/12/16 06:40 APTT 30 SECONDS (21-34) 11/12/16 06:40 - Constitutional Appears: Well - Head Exam Head Exam: ATRAUMATIC, NORMAL INSPECTION, NORMOCEPHALIC - Eye Exam Eye Exam: EOMI, Normal appearance, PERRL Pupil Exam: NORMAL ACCOMODATION, PERRL - ENT Exam ENT Exam: Mucous Membranes Moist, Normal Exam - Neck Exam Neck Exam: Full ROM, Normal Inspection. absent: Lymphadenopathy - Respiratory Exam Respiratory Exam: Decreased Breath Sounds - Cardiovascular Exam Cardiovascular Exam: REGULAR RHYTHM, +S1, +S2 - GI/Abdominal Exam GI & Abdominal Exam: Soft, Diminished Bowel Sounds - Rectal Exam Rectal Exam: Deferred Assessment and Plan (1) Acute blood loss anemia Status: Acute (2) Contusion of face Status: Acute (3) Hip fracture, left Status: Acute (4) Hip pain, right Status: Acute (5) Left displaced femoral neck fracture Status: Acute (6) Leg pain, right Status: Acute (7) Lumbar radiculopathy Status: Acute (8) Preprocedural cardiovascular examination Status: Acute (9) Sciatica Status: Acute (10) Hypertension Status: Chronic - Assessment and Plan (Free Text) Plan: Patient feeling better Physical therapy Ambulation Out of bed Pain meds Lovenox Continue antihypertensives
[2016-11-15 06:22] LABS: BLOOD UREA NITROGEN 16 mg/dL (7-17); CALCIUM 7.6 mg/dl (8.6-10.4); CARBON DIOXIDE 25 mmol/L (22-30); CHLORIDE 103 mmol/L (98-107); GFR AFRICAN-AMERICAN > 60; GLUCOSE,RANDOM 104 mg/dL (65-105); POTASSIUM 3.9 mmol/L (3.6-5.2); SODIUM 135 mmol/L (132-148)
[2016-11-15 06:40] LABS: HEMATOCRIT 30.9 % (34.0-47.0); MEAN CELL VOLUME 91.9 fL (81.0-99.0); MEAN CORPUSCULAR HEMOGLOBIN 31.2 pg (27.0-31.0); MEAN PLATELET VOLUME 9.3 fL (7.2-11.7); RED CELL DISTRIBUTION WIDTH 14.1 % (11.5-14.5); WHITE BLOOD COUNT 9.2 K/uL (4.8-10.8)
--- NOTE | 2016-11-15 08:16 | CP.PCM.PN ---
Subjective - Date & Time of Evaluation Date of Evaluation: 11/15/16 Time of Evaluation: 08:13 - Subjective Subjective: Patient states pain in hip is controlled. She says she was able to take a few steps with PT yesterday. Denies CP/SOB/dizziness. Good appetite. Denies numbness /tingling. Objective - Vital Signs/Intake and Output Vital Signs (last 24 hours): Temp Pulse Resp BP Pulse Ox 99.9 F H 82 20 119/65 97 11/14/16 23:05 11/14/16 23:05 11/14/16 23:05 11/14/16 23:05 11/14/16 23:05 Intake and Output: 11/15/16 11/15/16 06:59 18:59 Intake Total 300 Balance 300 - Medications Medications: Current Medications Alprazolam (Xanax) 1 mg PO HS [facility] Last Admin: 11/14/16 22:05 Dose: 1 mg Amlodipine Besylate (Norvasc) 10 mg PO DAILY [facility] Last Admin: 11/14/16 10:23 Dose: 10 mg Enoxaparin Sodium (Lovenox) 40 mg SC DAILY [facility] Last Admin: 11/14/16 10:24 Dose: 40 mg Ergocalciferol (Drisdol 50,000 Intl Units Cap) 1 cap PO QWK [facility] Last Admin: 11/12/16 10:00 Dose: Not Given Hydromorphone HCl (Dilaudid) 1 mg IVP Q8H PRN PRN Reason: Pain, moderate (4-7) Last Admin: 11/13/16 17:43 Dose: 1 mg Hydromorphone HCl (Dilaudid) 1 mg IVP Q4H PRN PRN Reason: Pain, severe (8-10) Last Admin: 11/14/16 03:50 Dose: 1 mg Ketorolac Tromethamine (Toradol) 30 mg IVP Q6 PRN PRN Reason: Pain, Mild (1-3) Last Admin: 11/14/16 11:05 Dose: 30 mg Metoprolol Tartrate (Lopressor) 50 mg PO BID [facility] Last Admin: 11/14/16 18:26 Dose: 50 mg Nitroglycerin (Nitrostat Sl Tab) 0.4 mg SL Q5M PRN PRN Reason: pain Pantoprazole Sodium (Protonix Ec Tab) 40 mg PO DAILY [facility] Last Admin: 11/14/16 10:23 Dose: 40 mg Ranolazine (Ranexa) 1,000 mg PO DAILY [facility] Last Admin: 11/14/16 10:23 Dose: 1,000 mg Rosuvastatin Calcium (Crestor) 5 mg PO HS [facility] Last Admin: 11/14/16 22:05 Dose: 5 mg - Labs Labs: 11/15/16 06:30 11/15/16 06:47 PT 12.1 SECONDS (9.7-12.2) 11/12/16 06:40 INR 1.1 11/12/16 06:40 APTT 30 SECONDS (21-34) 11/12/16 06:40 - Constitutional Appears: Well, No Acute Distress - Respiratory Exam Respiratory Exam: NORMAL BREATHING PATTERN - Extremities Exam Additional comments: +ROM ankle DF/PF, sensation intact, +DP pulses, calves soft NT neg homans. Hip abduction pillow intact, venodynes intact. dressing changed, moderate amount of serous drainage, no erythema, thigh soft. sterile gauze and tegaderm applied. - Skin Skin Exam: Normal Color, Warm Assessment and Plan (1) Left displaced femoral neck fracture Assessment & Plan: POD#3 s/p left hip hemiarthroplasty -PT/OT/OOB -posterior hip precautions -daily dressing changes -VTE proph on lovenox/venodynes -orthopedically stable for d/c to rehab, pending auth -d/w Dr. Brewer, agrees with above Status: Acute (2) Acute blood loss anemia Status: Acute
[2016-11-15] MEDS: Pantoprazole 40 mg EC Tab PO SCH (09:00)
[2016-11-15] MEDS: Ranolazine 500 mg Extended Release Tablets PO SCH (09:00)
[2016-11-15] MEDS: Enoxaparin 40 mg Syringe SC SCH (09:08)
--- NOTE | 2016-11-15 15:25 | CP.PCM.PN ---
Subjective - Date & Time of Evaluation Date of Evaluation: 11/15/16 Time of Evaluation: 12:20 - Subjective Subjective: clinically same Objective - Vital Signs/Intake and Output Vital Signs (last 24 hours): Temp Pulse Resp BP Pulse Ox 97.3 F L 92 H 20 127/64 96 11/15/16 07:47 11/15/16 07:47 11/15/16 07:47 11/15/16 07:47 11/15/16 07:47 Intake and Output: 11/15/16 11/15/16 06:59 18:59 Intake Total 300 Balance 300 - Medications Medications: Current Medications Alprazolam (Xanax) 1 mg PO HS [facility] Last Admin: 11/14/16 22:05 Dose: 1 mg Amlodipine Besylate (Norvasc) 10 mg PO DAILY [facility] Last Admin: 11/15/16 09:00 Dose: 10 mg Enoxaparin Sodium (Lovenox) 40 mg SC DAILY [facility] Last Admin: 11/15/16 09:08 Dose: 40 mg Ergocalciferol (Drisdol 50,000 Intl Units Cap) 1 cap PO QWK [facility]S [facility] Last Admin: 11/12/16 10:00 Dose: Not Given Hydromorphone HCl (Dilaudid) 1 mg IVP Q8H PRN PRN Reason: Pain, moderate (4-7) Last Admin: 11/13/16 17:43 Dose: 1 mg Hydromorphone HCl (Dilaudid) 1 mg IVP Q4H PRN PRN Reason: Pain, severe (8-10) Last Admin: 11/14/16 03:50 Dose: 1 mg Ketorolac Tromethamine (Toradol) 30 mg IVP Q6 PRN PRN Reason: Pain, Mild (1-3) Last Admin: 11/15/16 08:57 Dose: 30 mg Metoprolol Tartrate (Lopressor) 50 mg PO BID [facility] Last Admin: 11/15/16 09:10 Dose: 50 mg Nitroglycerin (Nitrostat Sl Tab) 0.4 mg SL Q5M PRN PRN Reason: pain Pantoprazole Sodium (Protonix Ec Tab) 40 mg PO DAILY [facility] Last Admin: 11/15/16 09:00 Dose: 40 mg Ranolazine (Ranexa) 1,000 mg PO DAILY [facility] Last Admin: 11/15/16 09:00 Dose: 1,000 mg Rosuvastatin Calcium (Crestor) 5 mg PO HS [facility] BEDS [facility] Last Admin: 11/14/16 22:05 Dose: 5 mg - Labs Labs: 11/15/16 06:30 11/15/16 06:47 PT 12.1 SECONDS (9.7-12.2) 11/12/16 06:40 INR 1.1 11/12/16 06:40 APTT 30 SECONDS (21-34) 11/12/16 06:40 - Constitutional Appears: Well - Head Exam Head Exam: ATRAUMATIC, NORMAL INSPECTION, NORMOCEPHALIC - Eye Exam Eye Exam: EOMI, Normal appearance, PERRL Pupil Exam: NORMAL ACCOMODATION, PERRL - ENT Exam ENT Exam: Mucous Membranes Moist, Normal Exam - Neck Exam Neck Exam: Full ROM, Normal Inspection. absent: Lymphadenopathy - Respiratory Exam Respiratory Exam: Decreased Breath Sounds - Cardiovascular Exam Cardiovascular Exam: REGULAR RHYTHM, +S1, +S2 - GI/Abdominal Exam GI & Abdominal Exam: Soft, Diminished Bowel Sounds - Rectal Exam Rectal Exam: Deferred Assessment and Plan (1) Acute blood loss anemia Status: Acute (2) Contusion of face Status: Acute (3) Hip fracture, left Status: Acute (4) Hip pain, right Status: Acute (5) Left displaced femoral neck fracture Status: Acute (6) Leg pain, right Status: Acute (7) Lumbar radiculopathy Status: Acute (8) Preprocedural cardiovascular examination Status: Acute (9) Sciatica Status: Acute (10) Hypertension Status: Chronic - Assessment and Plan (Free Text) Plan: Orth on board Discharge to rehab Ambulation Out of bed Wound care Dilaudid Blood pressure meds Statin
--- NOTE | 2016-11-15 15:43 | CP.PCM.PN ---
Subjective - Date & Time of Evaluation Date of Evaluation: 11/15/16 Time of Evaluation: 15:42 - Subjective Subjective: Agree with PA note. Pt ambulating with walker. Denies significant pain. Incision clean and dry NVI distally Ortho stable Awaiting discharge to rehab. Objective - Vital Signs/Intake and Output Vital Signs (last 24 hours): Temp Pulse Resp BP Pulse Ox 97.3 F L 92 H 20 127/64 96 11/15/16 07:47 11/15/16 07:47 11/15/16 07:47 11/15/16 07:47 11/15/16 07:47 Intake and Output: 11/15/16 11/15/16 06:59 18:59 Intake Total 300 Balance 300 - Medications Medications: Current Medications Alprazolam (Xanax) 1 mg PO HS [facility] Last Admin: 11/14/16 22:05 Dose: 1 mg Amlodipine Besylate (Norvasc) 10 mg PO DAILY [facility] Last Admin: 11/15/16 09:00 Dose: 10 mg Enoxaparin Sodium (Lovenox) 40 mg SC DAILY [facility] Last Admin: 11/15/16 09:08 Dose: 40 mg Ergocalciferol (Drisdol 50,000 Intl Units Cap) 1 cap PO QWK [facility] Last Admin: 11/12/16 10:00 Dose: Not Given Hydromorphone HCl (Dilaudid) 1 mg IVP Q8H PRN PRN Reason: Pain, moderate (4-7) Last Admin: 11/13/16 17:43 Dose: 1 mg Hydromorphone HCl (Dilaudid) 1 mg IVP Q4H PRN PRN Reason: Pain, severe (8-10) Last Admin: 11/14/16 03:50 Dose: 1 mg Ketorolac Tromethamine (Toradol) 30 mg IVP Q6 PRN PRN Reason: Pain, Mild (1-3) Last Admin: 11/15/16 08:57 Dose: 30 mg Metoprolol Tartrate (Lopressor) 50 mg PO BID [facility] Last Admin: 11/15/16 09:10 Dose: 50 mg Nitroglycerin (Nitrostat Sl Tab) 0.4 mg SL Q5M PRN PRN Reason: pain Pantoprazole Sodium (Protonix Ec Tab) 40 mg PO DAILY [facility] Last Admin: 11/15/16 09:00 Dose: 40 mg Ranolazine (Ranexa) 1,000 mg PO DAILY [facility] Last Admin: 11/15/16 09:00 Dose: 1,000 mg Rosuvastatin Calcium (Crestor) 5 mg PO HS [facility] Last Admin: 11/14/16 22:05 Dose: 5 mg - Labs Labs: 11/15/16 06:30 11/15/16 06:47 PT 12.1 SECONDS (9.7-12.2) 11/12/16 06:40 INR 1.1 11/12/16 06:40 APTT 30 SECONDS (21-34) 11/12/16 06:40
[2016-11-15 16:56] VITALS: BP 106/60; PULSE 67; TEMP 97.8; O2SAT 98
--- NOTE | 2016-11-15 18:50 | CP.PCM.PN ---
Subjective - Date & Time of Evaluation Date of Evaluation: 11/15/16 Time of Evaluation: 13:00 - Subjective Subjective: walking with a walker, NAD for rehab Objective - Vital Signs/Intake and Output Vital Signs (last 24 hours): Temp Pulse Resp BP Pulse Ox 97.8 F 67 20 106/60 98 11/15/16 15:09 11/15/16 15:09 11/15/16 15:09 11/15/16 15:09 11/15/16 15:09 Intake and Output: 11/15/16 11/15/16 06:59 18:59 Intake Total 300 Balance 300 - Medications Medications: Current Medications Alprazolam (Xanax) 1 mg PO HS [facility] Last Admin: 11/14/16 22:05 Dose: 1 mg Amlodipine Besylate (Norvasc) 10 mg PO DAILY [facility] Last Admin: 11/15/16 09:00 Dose: 10 mg Enoxaparin Sodium (Lovenox) 40 mg SC DAILY [facility] Last Admin: 11/15/16 09:08 Dose: 40 mg Ergocalciferol (Drisdol 50,000 Intl Units Cap) 1 cap PO QWK [facility] Last Admin: 11/12/16 10:00 Dose: Not Given Hydromorphone HCl (Dilaudid) 1 mg IVP Q8H PRN PRN Reason: Pain, moderate (4-7) Last Admin: 11/13/16 17:43 Dose: 1 mg Hydromorphone HCl (Dilaudid) 1 mg IVP Q4H PRN PRN Reason: Pain, severe (8-10) Last Admin: 11/14/16 03:50 Dose: 1 mg Ketorolac Tromethamine (Toradol) 30 mg IVP Q6 PRN PRN Reason: Pain, Mild (1-3) Last Admin: 11/15/16 08:57 Dose: 30 mg Metoprolol Tartrate (Lopressor) 50 mg PO BID [facility] Last Admin: 11/15/16 17:31 Dose: 50 mg Nitroglycerin (Nitrostat Sl Tab) 0.4 mg SL Q5M PRN PRN Reason: pain Pantoprazole Sodium (Protonix Ec Tab) 40 mg PO DAILY [facility] Last Admin: 11/15/16 09:00 Dose: 40 mg Ranolazine (Ranexa) 1,000 mg PO DAILY [facility] Last Admin: 11/15/16 09:00 Dose: 1,000 mg Rosuvastatin Calcium (Crestor) 5 mg PO HS [facility] Last Admin: 11/14/16 22:05 Dose: 5 mg - Labs Labs: 11/15/16 06:30 11/15/16 06:47 PT 12.1 SECONDS (9.7-12.2) 11/12/16 06:40 INR 1.1 11/12/16 06:40 APTT 30 SECONDS (21-34) 11/12/16 06:40 - Constitutional Appears: Non-toxic - Head Exam Head Exam: ATRAUMATIC - Eye Exam Eye Exam: EOMI - ENT Exam ENT Exam: Mucous Membranes Moist - Neck Exam Neck Exam: absent: Lymphadenopathy, Thyromegaly - Respiratory Exam Respiratory Exam: Clear to Ausculation Bilateral. absent: Rales - Cardiovascular Exam Cardiovascular Exam: REGULAR RHYTHM, Murmur - GI/Abdominal Exam GI & Abdominal Exam: Normal Bowel Sounds. absent: Organomegaly - Rectal Exam Rectal Exam: Deferred - Extremities Exam Extremities Exam: Normal Capillary Refill. absent: Calf Tenderness - Neurological Exam Neurological Exam: Alert, Oriented x3 - Psychiatric Exam Psychiatric exam: Anxious - Skin Skin Exam: Dry Assessment and Plan (1) Contusion of face Status: Acute (2) Hip fracture, left Status: Acute (3) Preprocedural cardiovascular examination Status: Acute (4) Hypertension Status: Chronic
--- NOTE | 2016-11-16 19:42 | CP.PCM.DIS ---
Provider - Provider Date of Admission: 11/11/16 22:50 Attending physician: Cheri Villalba MD Time Spent in preparation of Discharge (in minutes): 20 Diagnosis - Discharge Diagnosis (1) Contusion of face Status: Acute (2) Hip fracture, left Status: Acute (3) Preprocedural cardiovascular examination Status: Acute (4) Hypertension Status: Chronic Hospital Course - Lab Results Lab Results: Most Recent Lab Values WBC 9.2 K/uL (4.8-10.8) 11/15/16 06:30 RBC 3.36 Mil/uL (3.80-5.20) L 11/15/16 06:30 Hgb 10.5 g/dL (11.0-16.0) L 11/15/16 06:30 Hct 30.9 % (34.0-47.0) L 11/15/16 06:30 MCV 91.9 fL (81.0-99.0) 11/15/16 06:30 MCH 31.2 pg (27.0-31.0) H 11/15/16 06:30 MCHC 34.0 g/dL (33.0-37.0) 11/15/16 06:30 RDW 14.1 % (11.5-14.5) 11/15/16 06:30 Plt Count 178 K/uL (130-400) 11/15/16 06:30 MPV 9.3 fL (7.2-11.7) 11/15/16 06:30 Neut % (Auto) 83.7 % (50.0-75.0) H 11/11/16 22:28 Lymph % (Auto) 10.7 % (20.0-40.0) L 11/11/16 22:28 [place] % (Auto) 5.2 % (0.0-10.0) 11/11/16 22:28 Eos % (Auto) 0.2 % (0.0-4.0) 11/11/16 22:28 Baso % (Auto) 0.2 % (0.0-2.0) 11/11/16 22:28 Neut # 11.0 K/uL (1.8-7.0) H 11/11/16 22:28 Lymph # 1.4 K/uL (1.0-4.3) 04/21/17 22:28 [place] # 0.7 K/uL (0.0-0.8) 11/11/16 22:28 Eos # 0.0 K/uL (0.0-0.7) 11/11/16 22:28 Baso # 0.0 K/uL (0.0-0.2) 11/11/16 22:28 PT 12.1 SECONDS (9.7-12.2) 11/12/16 06:40 INR 1.1 11/12/16 06:40 APTT 30 SECONDS (21-34) 11/12/16 06:40 Sodium 135 mmol/L (132-148) 11/15/16 06:47 Potassium 3.9 mmol/L (3.6-5.2) 11/15/16 06:47 Chloride 103 mmol/L (98-107) 11/15/16 06:47 Carbon Dioxide 25 mmol/L (22-30) 11/15/16 06:47 Anion Gap 12 (10-20) 11/15/16 06:47 BUN 16 mg/dL (7-17) 11/15/16 06:47 Creatinine 0.8 MG/DL (0.7-1.2) 11/15/16 06:47 Est GFR ( Amer) > 60 11/15/16 06:47 Est GFR (Non-Af Amer) > 60 11/15/16 06:47 Random Glucose 104 mg/dL (65-105) 11/15/16 06:47 Calcium 7.6 mg/dl (8.6-10.4) L 11/15/16 06:47 Total Bilirubin 0.3 mg/dL (0.2-1.3) 11/11/16 22:28 AST 31 U/L (14-36) 11/11/16 22:28 ALT 25 U/L (9-52) 11/11/16 22:28 Alkaline Phosphatase 55 U/L (38-126) 11/11/16 22:28 Troponin I < 0.0120 ng/mL (0.00-0.120) 11/11/16 22:28 NT-Pro-B Natriuret Pep 145 pg/mL (0-900) 11/11/16 22:28 Total Protein 7.1 g/dL (6.3-8.3) 11/11/16 22:28 Albumin 4.2 g/dL (3.5-5.0) 11/11/16 22:28 Globulin 2.9 gm/dL (2.2-3.9) 11/11/16 22:28 Albumin/Globulin Ratio 1.4 (1.0-2.1) 11/11/16 22:28 Urine Color Yellow (YELLOW) 11/12/16 10:26 Urine Clarity Clear (Clear) 11/12/16 10:26 Urine pH 5.0 (5.0-8.0) 11/12/16 10:26 Ur Specific [place] 1.017 (1.003-1.030) 11/12/16 10:26 Urine Protein Negative mg/dL (NEGATIVE) 11/12/16 10:26 Urine Glucose (UA) Normal mg/dL (Normal) 11/12/16 10:26 Urine Ketones Negative mg/dL (NEGATIVE) 11/12/16 10:26 Urine Blood Negative (NEGATIVE) 11/12/16 10:26 Urine Nitrate Negative (NEGATIVE) 11/12/16 10:26 Urine Bilirubin Negative (NEGATIVE) 11/12/16 10:26 Urine Urobilinogen Normal mg/dL (0.2-1.0) 11/12/16 10:26 Ur Leukocyte Esterase Neg Lynn/uL (Negative) 11/12/16 10:26 Urine WBC (Auto) < 1 /hpf (0-5) 11/12/16 10:26 Urine RBC (Auto) < 1 /hpf (0-3) 11/12/16 10:26 Ur Squamous Epith Cells < 1 /hpf (0-5) 11/11/16 23:31 Urine Bacteria Occ (<OCC) H 11/11/16 23:31 - Hospital Course Hospital Course: admitted with DKA, hx of type I, improved, yet ama, while endo still managing hypothyroid Discharge Exam - Head Exam Head Exam: ATRAUMATIC - Eye Exam Eye Exam: EOMI - ENT Exam ENT Exam: Mucous Membranes Moist - Neck Exam Neck exam: Full Rom - Respiratory Exam Respiratory Exam: NORMAL BREATHING PATTERN. absent: Rales - Cardiovascular Exam Cardiovascular Exam: REGULAR RHYTHM. absent: Systolic Murmur - GI/Abdominal Exam GI & Abdominal Exam: Normal Bowel Sounds. absent: Organomegaly - Rectal Exam Rectal Exam: Deferred - Extremities Exam Extremities exam: normal capillary refill - Neurological Exam Neurological exam: Alert, Oriented x3 - Psychiatric Exam Psychiatric exam: Normal Mood - Skin Skin Exam: Dry Discharge Plan - Follow Up Plan Condition: GOOD Disposition: TRANSF TO SNF Instructions: Pain Management After Surgery (DC), Hip Fracture (GEN), Total Hip Replacement (DC)
== END 2016-11-15 21:20 | DRG 470 ==
LOC: C.ER 20:14 → C.6T 22:50
PROVIDERS: ADMIT Internal Medicine Nephrology; ATTEND Internal Medicine Nephrology
PROC: 0SRS0JZ Replacement of Left Hip Joint, Femoral Surface with Synthetic Substitute, Open Approach (ICD-10-PCS; principal; 2016-11-12 16:00)
DX: S72.092A Other fracture of head and neck of left femur, initial encounter for closed fracture (principal); J44.9 Chronic obstructive pulmonary disease, unspecified; D62 Acute posthemorrhagic anemia; W01.0XXA Fall on same level from slipping, tripping and stumbling without subsequent striking against object, initial encounter; F41.9 Anxiety disorder, unspecified; M19.90 Unspecified osteoarthritis, unspecified site; I10 Essential (primary) hypertension; E78.00 Pure hypercholesterolemia, unspecified; F17.210 Nicotine dependence, cigarettes, uncomplicated; K21.9 Gastro-esophageal reflux disease without esophagitis; S00.83XA Contusion of other part of head, initial encounter; Z96.641 Presence of right artificial hip joint; Z90.49 Acquired absence of other specified parts of digestive tract

== ENCOUNTER 2017-02-04 09:33 | Emergency (ER) | payer MEDICARE ==
--- NOTE | 2017-02-04 10:22 | C.PDOC ---
History Of Present Illness 76 y/o female, with PMHx of HTN, hypercholesterolemia, bilateral hip replacement , COPD, and right mastectomy secondary to breast ca, presents to ED with complaint of right knee pain for 2-3 days. Patient reports swelling to the knee and sharp pain going up and down her right leg. Denies injuries, falls, fever, numbness, or weakness. PMD: Dr. Josué Villalba Time Seen by Provider: 02/04/17 09:57 Chief Complaint (Nursing): Lower Extremity Problem/Injury History Per: Patient History/Exam Limitations: no limitations Onset/Duration Of Symptoms: Days Current Symptoms Are (Timing): Still Present Recent travel outside of the [place]: No Past Medical History Reviewed: Historical Data, Nursing Documentation, Vital Signs Vital Signs: Last Vital Signs Temp 98.4 F 02/04/17 09:42 Pulse 71 02/04/17 09:42 Resp 17 02/04/17 09:42 BP 120/77 02/04/17 09:42 Pulse Ox 98 02/04/17 10:48 - Medical History PMH: Anxiety, Arthritis, COPD, HTN, Hypercholesterolemia Surgical History: Cholecystectomy - [facility] Procedures REPLACE OF L HIP JT, FEMORAL WITH SYNTH SUB, OPEN APPROACH (11/11/16) Family History: States: Unknown Family Hx - Social History Hx Tobacco Use: Yes Hx Alcohol Use: No Hx Substance Use: No - Immunization History Hx Tetanus Toxoid Vaccination: No Hx Influenza Vaccination: Yes Hx Pneumococcal Vaccination: No Review Of Systems Except As Marked, All Systems Reviewed And Found Negative. Constitutional: Negative for: Fever, Chills Musculoskeletal: Positive for: Other (right knee pain) Skin: Negative for: Rash Neurological: Negative for: Weakness, Numbness Physical Exam - Physical Exam Appears: Non-toxic, No Acute Distress Skin: Warm, Dry Extremity: Tenderness (right knee ), Capillary Refill (< 2 sec.), No Deformity, Swelling (right knee ), Other (right knee: decreased flexion secondary to pain) Extremity: Bilateral: Normal Color And Temperature Pulses: Left Femoral: Normal, Right Femoral: Normal, Left Dorsalis Pedis: Normal , Right Dorsalis Pedis: Normal Neurological/Psych: Oriented x3, Normal Speech, Normal Cognition, Normal Motor, Normal Sensation ED Course And Treatment O2 Sat by Pulse Oximetry: 98 (RA) Pulse Ox Interpretation: Normal - Other Rad Right Knee X-Ray X-Ray: Interpreted by Me, Viewed By Me Interpretation: negative for acute fracture or dislocation Medical Decision Making Medical Decision Making: Impression: 76 y/o female with right knee pain Differential Diagnosis: right knee pain secondary to arthritis, bursitis, vs. knee strain Plan: * Right knee x-ray * Toradol * Reassess and disposition Progress: X-ray negative. Sukumar wrap applied to right knee. Patient feels better. Pain resolved. Sukumar wrap applied to right knee. She is able to walk at her baseline with her walker. She has an orthopedics DR. Brewer who she can follow up with this week. She will f/u with her PMD in 1-2 days. Disposition Counseled Patient/Family Regarding: Studies Performed, Diagnosis, Need For Followup, Rx Given - Disposition Referrals: Ligia Villalba MD [Staff Provider] - Timmy Brewer MD [Staff Provider] - Disposition: HOME/ ROUTINE Disposition Time: 10:38 Condition: IMPROVED Additional Instructions: Ms Perdue, thank you for letting us take care of you today. Your provider was Dr. Dykes. You were treated for Knee Arthritis/Bursitis. The emergency medical care you received today was directed at your acute symptoms. If you were prescribed any medication, please fill it and take as directed. It may take several days for your symptoms to resolve. Return to the Emergency Department if your symptoms worsen, do not improve, or if you have any other problems. Please contact your doctor or call one of the physicians/clinics you have been referred to that are listed on the Patient Visit Information form that is included in your discharge packet. Bring any paperwork you were given at discharge with you along with any medications you are taking to your follow up visit. Our treatment cannot replace ongoing medical care by a primary care provider (PCP) outside of the emergency department. Thank you for allowing the [facility] team to be part of your care today. If you had an X-Ray or CT scan: A Radiologist will review the ED reading if any change in treatment is needed we will contact you. If you had a blood, urine, or wound culture: It will take several days for the results, if any change in treatment is needed we will contact you. If you had an STI test: It will take 48 hours for the results. Please call after 1 week if you have not heard back. Instructions: Knee Bursitis (ED), Arthritis (ED) Forms: General Discharge Instructions - POA Present On Arrival: None - Clinical Impression Clinical Impression: Arthritis, Bursitis - Scribe Statement The provider has reviewed the documentation as recorded by the Mayuri Hdz Provider Attestation: All medical record entries made by the Mayuri were at my direction and personally dictated by me. I have reviewed the chart and agree that the record accurately reflects my personal performance of the history, physical exam, medical decision making, and the department course for this patient. I have also personally directed, reviewed, and agree with the discharge instructions and disposition.
--- NOTE | 2017-02-04 11:53 | RAD ---
PROCEDURE: Right Knee Radiographs. HISTORY: pain r/o fx COMPARISON: Comparison is made to 06/28/2016 FINDINGS: BONES: No evidence of acute fracture. JOINTS: Moderate to advanced osteoarthritic changes. JOINT EFFUSION: Small suprapatellar joint effusion is noted. OTHER FINDINGS: None. IMPRESSION: Moderate osteoarthritic changes. No evidence of acute fracture or dislocation. Small joint effusion.
[2017-02-04 12:48] VITALS: BP 107/56; PULSE 57; RESP 17; TEMP 98.2; O2SAT 100
== END 2017-02-04 11:19 | disposition home or self-care (01) ==
LOC: C.ER 09:33
DX: M17.11 Unilateral primary osteoarthritis, right knee (principal); M70.51 Other bursitis of knee, right knee
CPT/HCPCS: 73560; 94770; 96372; 99284; J1885

== ENCOUNTER 2017-04-21 09:07 | Emergency (ER) | payer MEDICARE ==
[2017-04-21] MEDS ORDERED: Naproxen 550 mg Tab PO STA (09:31)
[2017-04-21] MEDS ORDERED: Naproxen 550 mg Tab PO ONE (09:41)
--- NOTE | 2017-04-21 10:28 | RAD ---
PROCEDURE: Right Knee Radiographs 04/21/17. HISTORY: RIGHT KNEE PAIN SWELLING COMPARISON: Comparison made with radiographs of the right knee 02/04/2017 FINDINGS: BONES: Normal. No fracture. No evidence of acute displaced fracture nor dislocation. The osseous structures intact. JOINTS: Tricompartmental degenerative osteoarthritis most notably affecting the lateral and patellofemoral compartments. There is marked lateral joint space narrowing, subchondral sclerosis and marginal lateral osteophyte formation. Spurring of the tibial spines. . Smaller margin medial osteophyte formation. . Additionally, there are prominent osteophytes seen at the patellofemoral compartment as well. JOINT EFFUSION: Small suprapatellar joint effusion. OTHER FINDINGS: Vascular calcifications are present. IMPRESSION: Tricompartmental DJD most notably affecting the lateral and patellofemoral compartments.
--- NOTE | 2017-04-21 11:08 | C.PDOC ---
History Of Present Illness 76 y/o female, with PMHx of arthritis, presents to ED for evaluation of right knee and right leg pain and swelling since yesterday. Pt denies any fall/ injury. Patient states she had left hip replacement 3 months ago, and right hip replacement 4 years ago - both by Dr. Brewer. Otherwise, patient denies chest pain, shortness of breath, palpitations, extremity weakness, sensory changes, fever. Time Seen by Provider: 04/21/17 09:13 Chief Complaint (Nursing): Hip Pain History Per: Patient History/Exam Limitations: no limitations Onset/Duration Of Symptoms: Days (1) Current Symptoms Are (Timing): Still Present Severity: Mild Recent travel outside of the [place]: No Additional History Per: Patient Past Medical History Reviewed: Historical Data, Nursing Documentation, Vital Signs Vital Signs: Last Vital Signs Temp 97.8 F 04/21/17 11:24 Pulse 69 04/21/17 11:24 Resp 18 04/21/17 11:24 BP 128/78 04/21/17 11:24 Pulse Ox 97 04/21/17 11:57 - Medical History PMH: Anxiety, Arthritis, COPD, HTN, Hypercholesterolemia Surgical History: Cholecystectomy - [facility] Procedures REPLACE OF L HIP JT, FEMORAL WITH SYNTH SUB, OPEN APPROACH (11/11/16) Family History: States: No Known Family Hx - Social History Hx Tobacco Use: Yes Hx Alcohol Use: No Hx Substance Use: No - Immunization History Hx Tetanus Toxoid Vaccination: No Hx Influenza Vaccination: Yes Hx Pneumococcal Vaccination: No Review Of Systems Except As Marked, All Systems Reviewed And Found Negative. Constitutional: Negative for: Fever, Chills Cardiovascular: Negative for: Chest Pain, Palpitations Respiratory: Negative for: Cough, Shortness of Breath Gastrointestinal: Negative for: Nausea, Vomiting, Abdominal Pain Musculoskeletal: Positive for: Leg Pain (right knee and leg pain and swelling) Skin: Negative for: Rash, Bruising Neurological: Negative for: Weakness, Numbness Physical Exam - Physical Exam Appears: Well, Non-toxic, Other (in mild discomfort) Skin: Normal Color, Warm, Dry Head: Normacephalic Eye(s): bilateral: Normal Inspection Oral Mucosa: Moist Neck: Supple Cardiovascular: Rhythm Regular Respiratory: Normal Breath Sounds, No Rales, No Rhonchi, No Wheezing Extremity: Normal ROM (FROM of right knee and leg), Tenderness (moderate diffuse right knee tenderness), Calf Tenderness (mild tenderness to palpiation of proximal right calf, no erythema), Capillary Refill (< 2 sec all digits ), No Deformity, Swelling (moderate swelling to right knee, no warmth or erythema) Extremity: Bilateral: Atraumatic, Hips Non-Tender, Normal Color And Temperature , Normal ROM Pulses: Left Dorsalis Pedis: Normal, Right Dorsalis Pedis: Normal Neurological/Psych: Oriented x3, Normal Motor, Normal Sensation Gait: Steady ED Course And Treatment O2 Sat by Pulse Oximetry: 97 (on RA) Pulse Ox Interpretation: Normal - Other Rad Right knee x-ray X-Ray: Viewed By Me, Read By Radiologist Interpretation: Accession No. : [id number]. Patient Name / ID : MICHOACANO Nova / [id number]. Exam Date : 04/21/2017 09:33:30 ( Approved ). Study Comment : Sex / Age : F / 76Y. Creator : Brannon Lynn MD. Dictator : Furniture Upholstery Mechanic : Patient Care Representative : Brannon Lynn MD. Approver2 : Report Date : 04/21/2017 10:27:11. My Comment : . PROCEDURE: Right Knee Radiographs . HISTORY: RIGHT KNEE PAIN SWELLING. COMPARISON: Comparison made with radiographs of the right knee 02/04/2017. FINDINGS: BONES: Normal. No fracture. No evidence of acute displaced fracture nor dislocation. The osseous structures intact. JOINTS: Tricompartmental degenerative osteoarthritis most notably affecting the lateral and patellofemoral compartments. There is marked lateral joint space narrowing, subchondral sclerosis and marginal lateral osteophyte formation. Spurring of the tibial spines. . Smaller margin medial osteophyte formation. . Additionally, there are prominent osteophytes seen at the patellofemoral compartment as well. JOINT EFFUSION: Small suprapatellar joint effusion. OTHER FINDINGS: Vascular calcifications are present. IMPRESSION: Tricompartmental DJD most notably affecting the lateral and patellofemoral compartments. Progress Note: Right knee x-ray, right lower extremity doppler ordered and reviewed. Pt was given PO Naproxen, then IM toradol when reassessed (still had pain). Venous doppler (-) for acute DVT as per doppler tech. Reevaluation Time: 11:20 Reassessment Condition: Improved (Patient reassessed, pain has improved and she is able to ambulate normally. Sukumar wrap applied to area by nurse. Patient given Rx for naprosyn and instructed to follow up with her orthopedics within 1 week. She understands she should return to ED if symptoms worsen.) Disposition Counseled Patient/Family Regarding: Studies Performed, Diagnosis, Need For Followup, Rx Given - Disposition Referrals: Timmy Brewer MD [Staff Provider] - Disposition: HOME/ ROUTINE Disposition Time: 11:20 Condition: STABLE Additional Instructions: FOLLOW UP WITH ORTHOPEDICS WITHIN 1 WEEK USE MEDICATION NEEDED, ELEVATE LET RETURN TO ER IF SYMPTOMS WORSEN Prescriptions: Naproxen 375 mg PO BID PRN #20 tablet PRN Reason: pain Instructions: Osteoarthritis (ED), Knee Pain (ED) Forms: Celery (Vietnamese) Print Language: WELSH - POA Present On Arrival: None - Clinical Impression Clinical Impression: Arthritis of right knee - Scribe Statement The provider has reviewed the documentation as recorded by the Mayuri Villalba All medical record entries made by the Mayuri were at my direction and personally dictated by me. I have reviewed the chart and agree that the record accurately reflects my personal performance of the history, physical exam, medical decision making, and the department course for this patient. I have also personally directed, reviewed, and agree with the discharge instructions and disposition.
[2017-04-21 11:25] VITALS: BP 128/78; PULSE 69; RESP 18; TEMP 97.8
[2017-04-21 11:42] VITALS: O2SAT 97
== END 2017-04-21 11:33 | disposition home or self-care (01) ==
LOC: C.ER 09:07
DX: M17.11 Unilateral primary osteoarthritis, right knee (principal)
CPT/HCPCS: 73562; 93971; 96372; 99285; J1885

== ENCOUNTER 2017-07-09 11:32 | Observation (INO) | payer MEDICARE ==
[2017-07-09] MEDS ORDERED: Aspirin 325 mg EC Tablets PO STA (11:57)
--- NOTE | 2017-07-09 11:59 | C.PDOC ---
Addendum entered and electronically signed by Veronica Dias PA-C 07/09/17 14 :16: Addendum Addendum: 07/09/17 13:45 All labs reviewed. Troponin negative. Patient is nontoxic laying in bed. Will call Dr Ana Villalba for admission 07/09/17 13:[address] Ana Villalba who accepted patient and asking for orders BERONICA x3. Patient stable and will be placed on ob-tele. Orders placed. Original Note: History Of Present Illness <Khloe Schaeffer - Last Filed: 07/09/17 13:07> <Veronica Dias - Last Filed: 07/09/17 14:12> <Nohemy Barkley - Last Filed: 07/09/17 17:44> 76-year-old female with past medical history of hypertension, prior cardiac cath x 3, latest about 4 years ago with nonsignificant CAD. Patient is complaining of left sided chest pain in intermittent episodes for the last two weeks. The pain radiates to her back and under her breast. She saw her primary medical doctor yesterday who told her to come to the ER today. PMD: Dr. Ligia Villalba MD (Khloe Schaeffer) History Per: Patient History/Exam Limitations: no limitations Onset/Duration Of Symptoms: Days (x 2 weeks ), Intermittent Episodes Current Symptoms Are (Timing): Still Present <Khloe Schaeffer - Last Filed: 07/09/17 13:07> <Veronica Dias - Last Filed: 07/09/17 14:12> <Nohemy Barkley - Last Filed: 07/09/17 17:44> Time Seen by Provider: 07/09/17 11:47 Chief Complaint (Nursing): Chest Pain Past Medical History Reviewed: Historical Data, Nursing Documentation, Vital Signs - Medical History PMH: Anxiety, Arthritis, COPD, Depression, HTN, Hypercholesterolemia Denies: Chronic Kidney Disease Surgical History: Cholecystectomy Family History: States: Unknown Family Hx - Social History Hx Tobacco Use: Yes Hx Alcohol Use: No Hx Substance Use: No - Immunization History Hx Tetanus Toxoid Vaccination: No Hx Influenza Vaccination: Yes Hx Pneumococcal Vaccination: No <Khloe Schaeffer - Last Filed: 07/09/17 13:07> Vital Signs: Last Vital Signs Temp 97.5 F L 07/09/17 16:19 Pulse 67 07/09/17 16:19 Resp 20 07/09/17 16:19 BP 129/71 07/09/17 16:19 Pulse Ox 96 07/09/17 16:19 - [facility] Procedures REPLACE OF L HIP JT, FEMORAL WITH SYNTH SUB, OPEN APPROACH (11/11/16) Review Of Systems Except As Marked, All Systems Reviewed And Found Negative. Cardiovascular: Positive for: Chest Pain (left sided; radiates to back and under breast ) <Khloe Schaeffer - Last Filed: 07/09/17 13:07> Physical Exam - Physical Exam Appears: Well, Non-toxic, No Acute Distress Skin: Normal Color, Warm, Dry Head: Atraumatic, Normacephalic Eye(s): bilateral: Normal Inspection, EOMI Nose: Normal Oral Mucosa: Moist Neck: Normal, Normal ROM, Supple Chest: Symmetrical, Tenderness (left chest wall) Cardiovascular: Rhythm Regular Respiratory: Normal Breath Sounds, No Accessory Muscle Use Gastrointestinal/Abdominal: Normal Exam Back: Normal Inspection Extremity: Normal ROM, No Pedal Edema <Khloe Schaeffer - Last Filed: 07/09/17 13:07> ED Course And Treatment - Laboratory Results Result Diagrams: 07/09/17 12:49 ECG: Interpreted By Me, Viewed By Me ECG Rhythm: Sinus Rhythm Rate From EC O2 Sat by Pulse Oximetry: 98 (RA) Pulse Ox Interpretation: Normal - Radiology CXR: Interpreted by Me, Viewed By Me CXR Interpretation: Yes: No Acute Disease <Khloe Schaeffer - Last Filed: 07/09/17 13:07> - Laboratory Results Result Diagrams: 07/09/17 12:49 07/09/17 13:15 <Nohemy Barkley - Last Filed: 07/09/17 17:44> Medical Decision Making <Khloe Schaeffer - Last Filed: 07/09/17 13:07> <Veronica Dias - Last Filed: 07/09/17 14:12> <Nohemy Barkley - Last Filed: 07/09/17 17:44> Medical Decision Making: Time: 11:56 Plan: --EKG --BNP --Ck-MB --Creatine phosphokinase --Troponin I --CBC --PTT --Prothrombin time --Chest x-ray one view --Aspirin 325 mg PO --Urine culture --Saline lock 3 ml NS flush --Urinalysis --discussed patient's condition with PMD, Dr. Villalba who agreed with decision to admit. Time: 12:52 --transfer of care, endorsed by me, to Veronica Dias PA-C, pending labs and x- ray Scribe Attestation: Documented by Nguyen Fulton, acting as a scribe for Khloe Schaeffer PA-C Provider Scribe Attestation: All medical record entries made by the Scribe were at my direction and personally dictated by me. I have reviewed the chart and agree that the record accurately reflects my personal performance of the history, physical exam, medical decision making, and the department course for this patient. I have also personally directed, reviewed, and agree with the discharge instructions and disposition. (Khloe Schaeffer) Disposition - Disposition Disposition Time: 13:09 <Khloe Schaeffer - Last Filed: 07/09/17 13:07> <Veronica Dias - Last Filed: 07/09/17 14:12> <Nohemy Barkley - Last Filed: 07/09/17 17:44> - Disposition Disposition: HOSPITALIZED Condition: STABLE - Clinical Impression Clinical Impression: Chest pain - PA / BUSINESS MANAGEMENT INTERN / Resident Statement /DO has reviewed & agrees with the documentation as recorded. <Nohemy Barkley - Last Filed: 07/09/17 17:44> Physician Patient Turnover Patient Signed Over To: Veronica Dias <Khloe Schaeffer - Last Filed: 07/09/17 13:07>
[2017-07-09 12:40] LABS: RBC URINE < 1 /hpf (0-3); URINE BILIRUBIN NEGATIVE (NEGATIVE); URINE BLOOD NEGATIVE (NEGATIVE); URINE COLOR Yellow (YELLOW); URINE GLUCOSE (UA) NORMAL (Normal); URINE KETONE NEGATIVE (NEGATIVE); URINE LEUKOCYTE ESTERASE NEG Leu/uL (Negative); URINE PROTEIN NEGATIVE (NEGATIVE); URINE UROBILINOGEN NORMAL mg/dL (0.2-1.0); WBC URINE 3 /hpf (0-5)
[2017-07-09 12:53] LABS: BASO % 0.6 % (0.0-2.0); EOS % 0.4 % (0.0-4.0); HEMATOCRIT 41.9 % (34.0-47.0); LYMPH # 1.8 K/uL (1.0-4.3); LYMPH % 22.5 % (20.0-40.0); MEAN CELL VOLUME 91.7 fL (81.0-99.0); MEAN CORPUSCULAR HEMOGLOBIN 31.3 pg (27.0-31.0); MEAN CORPUSCULAR HGB CONC 34.1 g/dL (33.0-37.0); MEAN PLATELET VOLUME 8.9 fL (7.2-11.7); MONO # 0.5 K/uL (0.0-0.8); MONO % 5.9 % (0.0-10.0); NRBC % 0.1 % (0.0-2.0); RED CELL DISTRIBUTION WIDTH 14.1 % (11.5-14.5); WHITE BLOOD COUNT 7.8 K/uL (4.8-10.8)
--- NOTE | 2017-07-09 13:25 | RAD ---
Chest x-ray single frontal view History: Shortness of breath. Comparison: 11/11/2016 Findings Biapical pleural thickening. No focal infiltrate or effusion. Mild patchy increased markings at the left lung base. Heart size within normal limits. Degenerative changes in the spine and shoulders. Impression: Mild patchy increased markings at the left lung base. Clinical correlation.
[2017-07-09 13:26] LABS: INR 1.1
[2017-07-09 13:34] LABS: ALB/GLOB RATIO 1.4 (1.0-2.1); ALKALINE PHOSPHATASE 52 U/L (38-126); ALT/SGPT 38 U/L (9-52); AST/SGOT 46 U/L (14-36); BILIRUBIN,TOTAL 0.6 mg/dL (0.2-1.3); BLOOD UREA NITROGEN 19 mg/dL (7-17); CALCIUM 8.6 mg/dl (8.6-10.4); CARBON DIOXIDE 24 mmol/L (22-30); CHLORIDE 107 mmol/L (98-107); GFR AFRICAN-AMERICAN > 60; GLUCOSE,RANDOM 83 mg/dL (65-105); POTASSIUM 4.1 mmol/L (3.6-5.2); SODIUM 139 mmol/L (132-148); TOTAL PROTEIN 6.9 g/dL (6.3-8.3)
[2017-07-09 14:39] LABS: CHOLESTEROL 159 mg/dL (0-199)
[2017-07-09 20:20] LABS: TROPONIN I 0.021 ng/mL (0.00-0.120)
--- NOTE | 2017-07-09 21:43 | CP.PCM.CON ---
History of Present Illness - History of Present Illness History of Present Illness: 76 F with hx of HTN admitted for atypcal chest pain BERONICA x 1 negative ECHO 10/2016: Normal EF will monitor Past Patient History - Infectious Disease Hx of Infectious Diseases: None - Past Medical History & Family History Past Medical History?: Yes - Past Social History Smoking Status: Current Some Days Smoker - CARDIAC Hx Cardiac Disorders: Yes Hx Hypercholesterolemia: Yes Hx Hypertension: Yes - PULMONARY Hx Respiratory Disorders: Yes Hx Chronic Obstructive Pulmonary Disease (COPD): Yes - NEUROLOGICAL Hx Neurological Disorder: No - HEENT Hx HEENT Problems: No - RENAL Hx Chronic Kidney Disease: No - ENDOCRINE/METABOLIC Hx Endocrine Disorders: No - HEMATOLOGICAL/ONCOLOGICAL Hx Blood Disorders: Yes Hx Cancer: Yes (Right mastectomy in 1997) - INTEGUMENTARY Hx Dermatological Problems: No - MUSCULOSKELETAL/RHEUMATOLOGICAL Hx Musculoskeletal Disorders: Yes Hx Arthritis: Yes Hx Falls: Yes - GASTROINTESTINAL Hx Gastrointestinal Disorders: Yes Hx Gastroesophageal Reflux: Yes - GENITOURINARY/GYNECOLOGICAL Hx Genitourinary Disorders: No - PSYCHIATRIC Hx Psychophysiologic Disorder: Yes Hx Anxiety: Yes Hx Depression: Yes Hx Substance Use: No - SURGICAL HISTORY Hx Surgeries: Yes Hx Section: Yes (x2) Hx Cholecystectomy: Yes Hx Hysterectomy: Yes Hx Mastectomy: Yes Other/Comment: both hip replacements - ANESTHESIA Hx Anesthesia: Yes Hx Anesthesia Reactions: No Hx Malignant Hyperthermia: No Has any member of the family had a problem w/ anesthesia?: No Meds Allergies/Adverse Reactions: Allergies Allergy/AdvReac Type Severity Reaction Status Date / Time acetaminophen [From Percocet] Allergy RASH Verified 07/09/17 11:49 codeine Allergy RASH Verified 07/09/17 11:49 morphine Allergy RASH Verified 07/09/17 11:49 oxycodone Allergy RASH Verified 07/09/17 11:49 oxycodone HCl [From Percocet] Allergy RASH Verified 07/09/17 11:49 shellfish derived Allergy RASH Verified 07/09/17 11:49 - Medications Medications: Current Medications Alprazolam (Xanax) 1 mg PO [facility] Last Admin: 07/09/17 21:27 Dose: 1 mg Amlodipine Besylate (Norvasc) 10 mg PO DAILY [facility] Aspirin (Aspirin) 325 mg PO DAILY [facility] Clopidogrel Bisulfate (Plavix) 75 mg PO DAILY [facility] Enoxaparin Sodium (Lovenox) 40 mg SC DAILY [facility] Famotidine (Pepcid) 20 mg PO BID [facility] Metoprolol Tartrate (Lopressor) 50 mg PO BID [facility] Last Admin: 07/09/17 20:19 Dose: 50 mg Pneumococcal Polyvalent Vaccine (Pneumovax 23 Vaccine) 0.5 ml IM .ONCE ONE Stop: 07/12/17 10:01 Ranolazine (Ranexa) 1,000 mg PO DAILY [facility] Rosuvastatin Calcium (Crestor) 5 mg PO HS [facility] Last Admin: 07/09/17 21:27 Dose: 5 mg Results - Vital Signs Recent Vital Signs: Last Vital Signs Temp 97.5 F L 07/09/17 16:19 Pulse 61 07/09/17 20:06 Resp 20 07/09/17 16:19 BP 129/71 07/09/17 16:19 Pulse Ox 96 07/09/17 16:40 - Labs Result Diagrams: 07/09/17 12:49 07/09/17 13:15 Labs: Laboratory Results - last 24 hr 07/09/17 07/09/17 07/09/17 12:27 12:49 13:15 WBC 7.8 RBC 4.57 Hgb 14.3 D Hct 41.9 MCV 91.7 MCH 31.3 H MCHC 34.1 RDW 14.1 Plt Count 263 MPV 8.9 Neut % (Auto) 70.6 Lymph % (Auto) 22.5 Glascock % (Auto) 5.9 Eos % (Auto) 0.4 Baso % (Auto) 0.6 Neut # 5.5 Lymph # 1.8 Glascock # 0.5 Eos # 0.0 Baso # 0.0 PT 12.4 H INR 1.1 APTT 29 Sodium Potassium Chloride Carbon Dioxide Anion Gap BUN Creatinine Est GFR ( Amer) Est GFR (Non-Af Amer) Random Glucose Calcium Total Bilirubin AST ALT Alkaline Phosphatase Total Creatine Kinase CK-MB (Mass) Troponin I NT-Pro-B Natriuret Pep Total Protein Albumin Globulin Albumin/Globulin Ratio Triglycerides Cholesterol LDL Cholesterol Direct HDL Cholesterol Urine Color Yellow Urine Clarity Clear Urine pH 5.0 Ur Specific Baldwin 1.015 Urine Protein Negative Urine Glucose (UA) Normal Urine Ketones Negative Urine Blood Negative Urine Nitrate Negative Urine Bilirubin Negative Urine Urobilinogen Normal Ur Leukocyte Esterase Neg Urine WBC (Auto) 3 Urine RBC (Auto) < 1 Ur Squamous Epith Cells 1 1207/09/17 07/09/17 13:15 14:31 19:49 WBC RBC Hgb Hct MCV MCH MCHC RDW Plt Count MPV Neut % (Auto) Lymph % (Auto) Glascock % (Auto) Eos % (Auto) Baso % (Auto) Neut # Lymph # Glascock # Eos # Baso # PT INR APTT Sodium 139 Potassium 4.1 Chloride 107 Carbon Dioxide 24 Anion Gap 13 BUN 19 H Creatinine 0.7 Est GFR ( Amer) > 60 Est GFR (Non-Af Amer) > 60 Random Glucose 83 Calcium 8.6 Total Bilirubin 0.6 AST 46 H ALT 38 Alkaline Phosphatase 52 Total Creatine Kinase 47 42 CK-MB (Mass) 0.81 0.82 Troponin I 0.0230 0.0210 NT-Pro-B Natriuret Pep 208 Total Protein 6.9 Albumin 4.1 Globulin 2.9 Albumin/Globulin Ratio 1.4 Triglycerides 96 Cholesterol 159 LDL Cholesterol Direct 75 HDL Cholesterol 64 Urine Color Urine Clarity Urine pH Ur Specific Baldwin Urine Protein Urine Glucose (UA) Urine Ketones Urine Blood Urine Nitrate Urine Bilirubin Urine Urobilinogen Ur Leukocyte Esterase Urine WBC (Auto) Urine RBC (Auto) Ur Squamous Epith Cells
[2017-07-10 08:05] LABS: BASO # 0.1 K/uL (0.0-0.2); BASO % 0.9 % (0.0-2.0); EOS % 0.6 % (0.0-4.0); HEMATOCRIT 39.4 % (34.0-47.0); LYMPH # 1.5 K/uL (1.0-4.3); LYMPH % 21.1 % (20.0-40.0); MEAN CORPUSCULAR HEMOGLOBIN 31.4 pg (27.0-31.0); MEAN CORPUSCULAR HGB CONC 34.1 g/dL (33.0-37.0); MEAN PLATELET VOLUME 8.5 fL (7.2-11.7); MONO # 0.4 K/uL (0.0-0.8); MONO % 5.9 % (0.0-10.0); WHITE BLOOD COUNT 7.3 K/uL (4.8-10.8)
[2017-07-10 08:28] LABS: ALB/GLOB RATIO 1.5 (1.0-2.1); ALKALINE PHOSPHATASE 51 U/L (38-126); ALT/SGPT 37 U/L (9-52); AST/SGOT 26 U/L (14-36); BILIRUBIN,TOTAL 0.5 mg/dL (0.2-1.3); BLOOD UREA NITROGEN 20 mg/dL (7-17); CALCIUM 8.1 mg/dl (8.6-10.4); CARBON DIOXIDE 26 mmol/L (22-30); CHLORIDE 109 mmol/L (98-107); GFR AFRICAN-AMERICAN > 60; GLUCOSE,RANDOM 98 mg/dL (65-105); POTASSIUM 4.4 mmol/L (3.6-5.2); SODIUM 141 mmol/L (132-148); TOTAL PROTEIN 6.1 g/dL (6.3-8.3)
[2017-07-10] MEDS: Ranolazine 500 mg Extended Release Tablets PO SCH (10:25)
[2017-07-10] MEDS: Enoxaparin 40 mg Syringe SC SCH (10:27)
--- NOTE | 2017-07-10 15:08 | CP.PCM.PN ---
Subjective - Date & Time of Evaluation Date of Evaluation: 07/10/17 Time of Evaluation: 15:07 - Subjective Subjective: Patient seen and evaluated Still c/o intermittent chest pain Will schedule patient for stress test in am Objective - Vital Signs/Intake and Output Vital Signs (last 24 hours): Temp Pulse Resp BP Pulse Ox 97.8 F 60 20 119/72 97 07/10/17 08:02 07/10/17 11:02 07/10/17 08:02 07/10/17 10:25 07/10/17 11:02 Intake and Output: 07/10/17 07/10/17 06:59 18:59 Intake Total 700 Balance 700 - Medications Medications: Current Medications Alprazolam (Xanax) 1 mg PO HS [facility] Last Admin: 07/09/17 21:27 Dose: 1 mg Amlodipine Besylate (Norvasc) 10 mg PO DAILY [facility] Last Admin: 07/10/17 10:27 Dose: Not Given Aspirin (Aspirin) 325 mg PO DAILY [facility] Last Admin: 07/10/17 10:25 Dose: 325 mg Clopidogrel Bisulfate (Plavix) 75 mg PO DAILY [facility] Last Admin: 07/10/17 10:25 Dose: 75 mg Enoxaparin Sodium (Lovenox) 40 mg SC DAILY [facility] Last Admin: 07/10/17 10:27 Dose: 40 mg Famotidine (Pepcid) 20 mg PO BID [facility] Last Admin: 07/10/17 10:25 Dose: 20 mg Metoprolol Tartrate (Lopressor) 50 mg PO BID [facility] Last Admin: 07/10/17 10:26 Dose: 50 mg Pneumococcal Polyvalent Vaccine (Pneumovax 23 Vaccine) 0.5 ml IM .ONCE ONE Stop: 07/12/17 10:01 Ranolazine (Ranexa) 1,000 mg PO DAILY [facility] Last Admin: 07/10/17 10:25 Dose: 1,000 mg Rosuvastatin Calcium (Crestor) 5 mg PO HS [facility] Last Admin: 07/09/17 21:27 Dose: 5 mg - Labs Labs: 07/10/17 07:59 07/10/17 07:59 PT 12.4 SECONDS (9.7-12.2) H 07/09/17 13:15 INR 1.1 07/09/17 13:15 APTT 29 SECONDS (21-34) 07/09/17 13:15
[2017-07-10 15:36] VITALS: O2SAT 96
[2017-07-10] MEDS ORDERED: DiphenhydrAMINE 50 mg/ml Inj IVP PRN (17:17)
--- NOTE | 2017-07-10 19:22 | CP.PCM.HP ---
Past Patient History - Infectious Disease Hx of Infectious Diseases: None - Past Medical History & Family History Past Medical History?: Yes - Past Social History Smoking Status: Current Some Days Smoker - CARDIAC Hx Cardiac Disorders: (Cardiac cath) Hx Hypercholesterolemia: Yes Hx Hypertension: Yes - PULMONARY Hx Chronic Obstructive Pulmonary Disease (COPD): Yes - NEUROLOGICAL Hx Neurological Disorder: No - HEENT Hx HEENT Problems: No - RENAL Hx Chronic Kidney Disease: No - ENDOCRINE/METABOLIC Hx Endocrine Disorders: No - HEMATOLOGICAL/ONCOLOGICAL Hx Blood Disorders: Yes Hx Cancer: Yes (Right mastectomy in 1997) - INTEGUMENTARY Hx Dermatological Problems: No - MUSCULOSKELETAL/RHEUMATOLOGICAL Hx Musculoskeletal Disorders: Yes Hx Arthritis: Yes Hx Falls: Yes - GASTROINTESTINAL Hx Gastrointestinal Disorders: Yes Hx Gastroesophageal Reflux: Yes - GENITOURINARY/GYNECOLOGICAL Hx Genitourinary Disorders: No - PSYCHIATRIC Hx Psychophysiologic Disorder: Yes Hx Anxiety: Yes Hx Depression: Yes Hx Substance Use: No - SURGICAL HISTORY Hx Surgeries: Yes Hx Section: Yes (x2) Hx Cholecystectomy: Yes Hx Hysterectomy: Yes Hx Mastectomy: Yes Other/Comment: both hip replacements - ANESTHESIA Hx Anesthesia: Yes Hx Anesthesia Reactions: No Hx Malignant Hyperthermia: No Has any member of the family had a problem w/ anesthesia?: No Meds Allergies/Adverse Reactions: Allergies Allergy/AdvReac Type Severity Reaction Status Date / Time acetaminophen [From Percocet] Allergy RASH Verified 07/09/17 11:49 codeine Allergy RASH Verified 07/09/17 11:49 FISH Allergy RASH Verified 07/10/17 17:05 morphine Allergy RASH Verified 07/09/17 11:49 oxycodone Allergy RASH Verified 07/09/17 11:49 oxycodone HCl [From Percocet] Allergy RASH Verified 07/09/17 11:49 shellfish derived Allergy RASH Verified 07/09/17 11:49 Physical Exam - Constitutional Appears: Well - Head Exam Head Exam: ATRAUMATIC, NORMAL INSPECTION, NORMOCEPHALIC - Eye Exam Eye Exam: EOMI, Normal appearance, PERRL Pupil Exam: NORMAL ACCOMODATION, PERRL - ENT Exam ENT Exam: Mucous Membranes Moist, Normal Exam - Neck Exam Neck exam: Positive for: Normal Inspection - Respiratory Exam Respiratory Exam: Decreased Breath Sounds - Cardiovascular Exam Cardiovascular Exam: REGULAR RHYTHM, +S1, +S2 - GI/Abdominal Exam GI & Abdominal Exam: Diminished Bowel Sounds, Soft - Rectal Exam Rectal Exam: Deferred Results - Vital Signs Recent Vital Signs: Last Vital Signs Temp 98.1 F 07/10/17 15:31 Pulse 62 07/10/17 18:38 Resp 20 07/10/17 15:31 BP 142/71 07/10/17 15:31 Pulse Ox 96 07/10/17 15:31 - Labs Result Diagrams: 07/10/17 07:59 07/10/17 07:59 Labs: Laboratory Results - last 24 hr 07/09/17 07/10/17 07/10/17 19:49 07:59 07:59 WBC 7.3 RBC 4.28 Hgb 13.4 Hct 39.4 MCV 92.0 MCH 31.4 H MCHC 34.1 RDW 14.0 Plt Count 245 MPV 8.5 Neut % (Auto) 71.5 Lymph % (Auto) 21.1 Butler % (Auto) 5.9 Eos % (Auto) 0.6 Baso % (Auto) 0.9 Neut # 5.3 Lymph # 1.5 Butler # 0.4 Eos # 0.0 Baso # 0.1 Sodium 141 Potassium 4.4 Chloride 109 H Carbon Dioxide 26 Anion Gap 10 BUN 20 H Creatinine 0.9 Est GFR ( Amer) > 60 Est GFR (Non-Af Amer) > 60 Random Glucose 98 Calcium 8.1 L Total Bilirubin 0.5 AST 26 ALT 37 Alkaline Phosphatase 51 Total Creatine Kinase 42 33 CK-MB (Mass) 0.82 0.53 Troponin I 0.0210 0.0230 Total Protein 6.1 L Albumin 3.6 Globulin 2.5 Albumin/Globulin Ratio 1.5
[2017-07-10] MEDS ORDERED: Bismuth Subsalicylate 262 mg/15 ml Sus (240 ml) PO ONE (21:15)
--- NOTE | 2017-07-10 22:16 | CARD ---
APPROVED REPORT EKG Measurement Heart [id number] <Conclusion> Normal sinus rhythm Left axis deviation Minimal voltage criteria for LVH, may be normal variant Abnormal ECG
[2017-07-11 00:36] VITALS: BP 113/66; RESP 18; TEMP 97.8
[2017-07-11] MEDS ORDERED: Aminophylline 25 mg/ml Inj ONE (07:59)
[2017-07-11] MEDS: Ranolazine 500 mg Extended Release Tablets PO SCH (10:15)
[2017-07-11] MEDS: Enoxaparin 40 mg Syringe SC SCH (10:15)
[2017-07-11 12:09] VITALS: PULSE 69
--- NOTE | 2017-07-11 14:56 | CARD ---
APPROVED REPORT Protocol: LEXISCAN Target HR: 144 bpm Resting ECG: NSR Resting Heart Rate: 68 bpm Resting Blood Pressure: 124/80mmHg submaximum (85%): 122 bpm TEST SUMMARY PREINFSNHYPERV.01:[id number]/80.0. INFUSIONDOSE 100:[id number]/80.0. KTIBTTPFH24:[id number]/80.0. POST EXERCISE Reason for Termination: Protocol Completed Target HR: No Max HR: 73 bpm 70% of Maximum Predicted HR: 144 bpm Exercise duration: 00:30 min:sec, 0 Stage Exercise capacity: 1.0METs Max Blood Pressure: 126/80mmHg Blood Pressure response to exercise: normal resting BP - appropriate response Heart Rate response to exercise: appropriate Chest Pain: No, none Angina index: 0 Arrhythmia: No, none ST Change: No, none Deviation: 0 mm INTERPRETATION Stress EKG Conclusion: NEGATIVE LEXISCAN STRESS TEST NORMAL BP RESPONSE TO LEXISCAN NUCLEAR STUDIES TO BE READ SEPARATELY EXAM: Myocardial Perfusion STRESS/REST Imaging Protocol The imaging protocol used to acquire images was Stress Tc-99m/rest Tc-99m 1 day Rest Spect myocardial perfusion imaging was performed in supine position 45 minutes following the injection of 32.6 mCi of Tc-99 Myoview. Gated Stress Spect was performed 45 minutes after intravenous 13.1 mCi Tc-99 Myoview injection. The images were gated to evaluate regional wall motion and calculate ventricular ejection fraction.Images were reconstructed using backfilter projection method in short horizontal and verticle long axis. Spect slices were generated. RESTING DATA EDV51.98qcJO1.40L/min ESV7.00mlMyocardial Mass97.00g Av. Heart Rate56.00bpm EF86.00% STRESS DATA EDV46.57loNO8.50L/min ESV9.00mlMyocardial Mass96.00g EF80.00% Regional WT score at stress:1.00 Regional WM score at stress:0.00 Summed WT score at stress:4.00 Av. Heart Rate69.00bpmSummed WM score at stress:1.00 LV Perf. Quant 17 Seg. SSS1.00 17 Seg. SRS3.00 17 Seg. SDS0.00 Stress Defect Extent (% LAD)0.00Rest Defect Extent (% LAD)0.00Rev. Defect Extent (% LAD)0.00 Stress Defect Extent (% LCX)1.30Rest Defect Extent (% LCX)28.80Rev. Defect Extent (% LCX)0.00 Stress Defect Extent (% RCA)0.00Rest Defect Extent (% RCA)0.00Rev. Defect Extent (% RCA)0.00 Stress Defect Extent (% MORRIS)0.20Rest Defect Extent (% MORRIS)6.30Rev. Defect Extent (% MORRIS)0.00 Other Information Quality:Good IMPRESSION Normal Myocardial Perfusion exercise stress study Left Ventricle LV Function:Left ventricle systolic function is normal. The Ejection Fraction is >55%. Conclusion 1. Normal lexiscan nuclea rstress test. Normal EF
--- NOTE | 2017-07-11 15:23 | CP.PCM.PN ---
Subjective - Date & Time of Evaluation Date of Evaluation: 07/11/17 Time of Evaluation: 15:23 - Subjective Subjective: PATIENT WAS ADMITTED FOR CHEST PAIN; AAOX3 DENIES CHEST PAIN, NAUSEA OR VOMITING ; NO SIGN OF DISTRESS NOTED Objective - Vital Signs/Intake and Output Vital Signs (last 24 hours): Temp Pulse Resp BP Pulse Ox 97.8 F 69 18 113/66 96 07/10/17 23:35 07/11/17 12:02 07/10/17 23:35 07/10/17 23:35 07/10/17 23:35 Intake and Output: 07/11/17 07/11/17 06:59 18:59 Intake Total 620 Balance 620 - Medications Medications: Current Medications Alprazolam (Xanax) 1 mg PO HS [facility] Last Admin: 07/10/17 21:39 Dose: 1 mg Amlodipine Besylate (Norvasc) 10 mg PO DAILY [facility] Last Admin: 07/11/17 10:15 Dose: 10 mg Aspirin (Aspirin) 325 mg PO DAILY [facility] Last Admin: 07/11/17 10:14 Dose: 325 mg Clopidogrel Bisulfate (Plavix) 75 mg PO DAILY [facility] Last Admin: 07/11/17 10:14 Dose: 75 mg Diphenhydramine HCl (Benadryl) 25 mg IVP Q8 PRN PRN Reason: Allergy symptoms Last Admin: 07/10/17 17:23 Dose: 25 mg Enoxaparin Sodium (Lovenox) 40 mg SC DAILY [facility] Last Admin: 07/11/17 10:15 Dose: 40 mg Famotidine (Pepcid) 20 mg PO BID [facility] Last Admin: 07/11/17 10:15 Dose: 20 mg Metoprolol Tartrate (Lopressor) 50 mg PO BID [facility] Last Admin: 07/11/17 10:15 Dose: 50 mg Pneumococcal Polyvalent Vaccine (Pneumovax 23 Vaccine) 0.5 ml IM .ONCE ONE Stop: 07/12/17 10:01 Ranolazine (Ranexa) 1,000 mg PO DAILY [facility] Last Admin: 07/11/17 10:15 Dose: 1,000 mg Rosuvastatin Calcium (Crestor) 5 mg PO HS [facility] Last Admin: 07/10/17 21:39 Dose: 5 mg - Labs Labs: 07/10/17 07:59 07/10/17 07:59 PT 12.4 SECONDS (9.7-12.2) H 07/09/17 13:15 INR 1.1 07/09/17 13:15 APTT 29 SECONDS (21-34) 07/09/17 13:15 - Respiratory Exam Respiratory Exam: Clear to Ausculation Bilateral - Cardiovascular Exam Cardiovascular Exam: +S1, +S2 Assessment and Plan - Assessment and Plan (Free Text) Assessment: A/P PATIENT IS SEEN AND EXAMINED AT THE BEDSIDE; NORMAL STRESS TEST PATIENT IS CLEAR BY DR ROYAL LUNG SOUND CLEAR KEVEN DISCUSS WITH DR Ana VASQUEZ AND CLEAR PATIENT FOR D/C FOLLOW UP WITH DR Ana VASQUEZ IN A WEEK AT HIS OFFICE ----CALL DR Ana VASQUEZ OFFICE FOR APPOINTMENT CONTINUE ALL YOUR HOME MEDICATIONS PER MED RECS ACTIVITY TOLERATED CALL DR Ana VASQUEZ OR GO TO THE EMERGENCY ROOM IF SYMPTOMS RETURN OR WORSENING DISCUSS WITH PATIENT WHO AGREE AND VERBALIZED UNDERSTANDING
[2017-07-11] MEDS ORDERED: Pneumococcal 23-Valent Vaccine IM ONE (15:53)
[2017-07-12] MEDS ORDERED: Pneumococcal 23-Valent Vaccine IM ONE (10:00)
== END 2017-07-11 16:30 | disposition home or self-care (01) ==
LOC: C.ER 11:32 → C.9E 14:17 → C.5S 15:08
PROVIDERS: ADMIT Internal Medicine Nephrology; ATTEND Internal Medicine Nephrology
DX: I25.10 Atherosclerotic heart disease of native coronary artery without angina pectoris (principal); I10 Essential (primary) hypertension; J44.9 Chronic obstructive pulmonary disease, unspecified; F17.200 Nicotine dependence, unspecified, uncomplicated; E78.00 Pure hypercholesterolemia, unspecified; K21.9 Gastro-esophageal reflux disease without esophagitis
CPT/HCPCS: 36415; 71010; 78452; 80053; 80061; 81001; 82550; 82553; 83880; 84484; 85025; 85610; 85730; 87086; 90732; 93005; 93017; 97110; 97116; 97162; 99285; A9502; G0009; G0378; G8978; G8979; J0280; J1200; J1650; J2785

== ENCOUNTER 2017-08-01 06:38 | Emergency (ER) | payer MEDICARE ==
--- NOTE | 2017-08-01 07:45 | C.PDOC ---
History Of Present Illness 76 y/o female, with PMHx of arthritis, presents to ED for evaluation of right knee and right leg pain and swelling gradually developed for past few days. Pt sts, pain is localized, worse with ambulation. Pt denies any fall/injury. Pt admits, similar sx in past, was seen in ED in March 2017 with same sx. Patient states right hip replacement 4 years ago - both by Dr. Brewer. Otherwise, patient denies fever, chills, chest pain, shortness of breath, palpitations, extremity weakness, sensory changes to B/L LEs. Ambulate to ED for evaluation w/assistance of cane, not in any apparent distress. Time Seen by Provider: 08/01/17 07:25 Chief Complaint (Nursing): Lower Extremity Problem/Injury History Per: Patient Past Medical History Reviewed: Historical Data, Nursing Documentation, Vital Signs Vital Signs: Last Vital Signs Temp 98.2 F 08/01/17 08:02 Pulse 67 08/01/17 08:02 Resp 20 08/01/17 08:02 BP 115/67 08/01/17 08:02 Pulse Ox 95 08/01/17 09:16 - Medical History PMH: Anxiety, Arthritis, COPD, Depression, HTN, Hypercholesterolemia Denies: Chronic Kidney Disease Surgical History: Cholecystectomy - [facility] Procedures REPLACE OF L HIP JT, FEMORAL WITH SYNTH SUB, OPEN APPROACH (11/11/16) Family History: States: Unknown Family Hx - Social History Hx Tobacco Use: Yes Hx Alcohol Use: No Hx Substance Use: No - Immunization History Hx Tetanus Toxoid Vaccination: No Hx Influenza Vaccination: Yes Hx Pneumococcal Vaccination: No Review Of Systems Except As Marked, All Systems Reviewed And Found Negative. Constitutional: Negative for: Fever, Chills Cardiovascular: Negative for: Chest Pain, Palpitations Respiratory: Negative for: Cough, Shortness of Breath Musculoskeletal: Positive for: Other (Right knee pain) Skin: Negative for: Rash, Bruising Neurological: Negative for: Weakness, Numbness Physical Exam - Physical Exam Appears: Well, Non-toxic, No Acute Distress Skin: Normal Color, Warm, No Pale, No Rash Head: Normacephalic Eye(s): bilateral: PERRL Oral Mucosa: Moist Neck: Trachea Midline, Supple Cardiovascular: Rhythm Regular, No Murmur, No JVD Respiratory: No Decreased Breath Sounds, No Accessory Muscle Use, No Stridor, No Wheezing Extremity: Normal ROM (mild discomfort to Right knee extension), Tenderness ( diffuse over Right knee with mild nos edema), No Pedal Edema, Calf Tenderness ( mild Right. No varicous vein), No Deformity Neurological/Psych: Oriented x3, Normal Speech, Normal Motor, Normal Sensation, Normal Reflexes ED Course And Treatment O2 Sat by Pulse Oximetry: 95 - Other Rad Knee, right X-Ray: Interpreted by Me, Viewed By Me Interpretation: (+) PROCEDURE: Right Knee Radiographs. HISTORY: pain. COMPARISON: 04/21/2017. FINDINGS: BONES: No fracture. Diffuse osteophytosis , subchondral sclerosis subchondral cystic changes present. JOINTS: Tricompartmental osteoarthrosis - patellofemoral and lateral femoral tibial compartment most notable. JOINT EFFUSION: Small suprapatellar joint effusion - similar. OTHER FINDINGS: Possible minimal degenerative ossific debris oral femoral tibial compartment. IMPRESSION: Tricompartmental osteoarthrosis. Small joint effusion with probable ossific debris loose bodies. No change - CT Scan/US Doppler US RLE Other Rad Studies (CT/US): Read By Radiologist CT/US Interpretation: (-) for DVT as per tech reading Progress Note: On re-eval, pt is afebrile, hemodynamicaly stable. Non-toxic. Ambulatory in Ed at baseline gait w/assistance of cane. Neck: SUpple, (-) JVD, (-) carotid bruits B/L. Lungs: CTA B/L, BS equal B/L. CVS: (+)S1S2,reg. RLE: exam c/w Right knee arthralgia. No deformirt, no clelulitis. neurologicaly intact. Xray review and c/w arthritis. Doppler US RLE (-) DVT. Pt advised and ref to F/u with Ortho Dr. Brewer in 2 -3 [place] for re-eval. return to ED if any worsening or new changes. Disposition Counseled Patient/Family Regarding: Studies Performed, Diagnosis, Need For Followup, Rx Given - Disposition Referrals: Timmy Brewer MD [Staff Provider] - Ligia Villalba MD [Staff Provider] - Disposition: HOME/ ROUTINE Disposition Time: 09:01 Condition: STABLE Additional Instructions: ELVER WRAP TO RIGHT KNEE NEED TAKE MEDICATION PRESCRIBED FOLLOW UP WITH ORTHOPEDIST IN 2-3 [place] FOR RE-EVALUATION. FOLLOW UP WITH PMD CONSIDER PHYSICAL THERAPY AND PAIN MANAGEMENT NEED RETURN TO ED IF ANY NEW CHANGES. Prescriptions: predniSONE [predniSONE Tab] 40 mg PO DAILY #6 tab traMADol [Ultram] 50 mg PO TID #7 tab Instructions: Osteoarthritis (ED), Knee Pain (ED) Forms: [facility] ([place]) - Clinical Impression Clinical Impression: Arthralgia of knee
[2017-08-01 08:03] VITALS: RESP 20
--- NOTE | 2017-08-01 08:19 | RAD ---
PROCEDURE: Right Knee Radiographs. HISTORY: pain COMPARISON: 04/21/2017 FINDINGS: BONES: No fracture Diffuse osteophytosis, subchondral sclerosis subchondral cystic changes present JOINTS: Tricompartmental osteoarthrosis - patellofemoral and lateral femoral tibial compartment most notable. JOINT EFFUSION: Small suprapatellar joint effusion -similar OTHER FINDINGS: Possible minimal degenerative ossific debris oral femoral tibial compartment IMPRESSION: Tricompartmental osteoarthrosis. Small joint effusion with probable ossific debris loose bodies. No change
[2017-08-01 10:08] VITALS: BP 119/72; PULSE 85; TEMP 98.5
[2017-08-01 10:13] VITALS: O2SAT 95
--- NOTE | 2017-08-01 15:10 | VASCLAB ---
PROCEDURE: Right Lower Extremity Venous Duplex Exam. HISTORY: pain right calf PRIORS: None. TECHNIQUE: Right common femoral, femoral, popliteal and posterior tibial, peroneal and great saphenous veins were evaluated. Flow was assessed with color Doppler, compressibility, assessment of phasic flow and augmentation response. Report prepared by SMITHA Castillo FINDINGS: RIGHT: 1. Common Femoral Vein: 1.1. Compressibility - Fully compressible: Thrombus - None: Flow - Phasic: Augmentation -Normal: Reflux - None. 2. Femoral Vein: 2.1. Compressibility - Fully compressible: Thrombus - None: Flow - Phasic: Augmentation -Normal: Reflux - None. 3. Popliteal Vein: 3.1. Compressibility - Fully compressible: Thrombus - None: Flow - Phasic: Augmentation -Normal: Reflux - None. 4. Posterior Tibial Vein: 4.1. Compressibility - Fully compressible: Thrombus - None: Flow - Phasic: Augmentation -Normal: Reflux - None. 5. Peroneal Vein: 5.1. Compressibility - Fully compressible: Thrombus - None: Flow - Phasic: Augmentation -Normal: Reflux - None. 6. Great Saphenous Vein: 6.1. Compressibility - Fully compressible: Thrombus -None: Flow - Phasic: Augmentation - Normal: Reflux - None. OTHER FINDINGS: IMPRESSION: No evidence of deep or superficial vein thrombosis of the right lower extremity with excellent venous flow. Normal valve function noted of the right side. Normal venous flow noted in the left common femoral vein.
== END 2017-08-01 10:31 | disposition home or self-care (01) ==
LOC: C.ER 06:38
DX: M25.561 Pain in right knee (principal)

== ENCOUNTER 2018-05-20 13:03 | Inpatient (IN) | payer MEDICARE ==
[2018-05-20 14:13] LABS: BASO % 0.6 % (0.0-2.0); EOS % 0.7 % (0.0-4.0); HEMOGLOBIN 14.3 g/dL (11.0-16.0); LYMPH # 2.1 K/uL (1.0-4.3); LYMPH % 31.9 % (20.0-40.0); MEAN CELL VOLUME 92.7 fL (81.0-99.0); MEAN CORPUSCULAR HEMOGLOBIN 31.5 pg (27.0-31.0); MEAN PLATELET VOLUME 8.6 fL (7.2-11.7); MONO # 0.5 K/uL (0.0-0.8); NEUT # 3.9 K/uL (1.8-7.0); NEUT % 59.8 % (50.0-75.0); NRBC % 0.1 % (0.0-2.0); RBC 4.53 Mil/uL (3.80-5.20); RED CELL DISTRIBUTION WIDTH 13.1 % (11.5-14.5); WHITE BLOOD COUNT 6.5 K/uL (4.8-10.8)
[2018-05-20 14:21] LABS: INR 1.1; PROTHROMBIN TIME 12.4 SECONDS (9.7-12.2)
[2018-05-20 15:06] LABS: ALB/GLOB RATIO 1.3 (1.0-2.1); ALBUMIN 4.5 g/dL (3.5-5.0); BLOOD UREA NITROGEN 19 mg/dL (7-17); CALCIUM 9.5 mg/dl (8.6-10.4); GFR NON-AFRICAN AMERICAN > 60
[2018-05-20 15:12] LABS: ALT/SGPT 17 U/L (9-52); AST/SGOT 30 U/L (14-36)
[2018-05-20 15:18] LABS: B-TYPE NATRIURETIC PEPTIDE 308 pg/mL (0-900); CK-MB 0.81 ng/mL (0.0-3.38)
--- NOTE | 2018-05-20 15:27 | C.PDOC ---
History Of Present Illness 77 year old female complains of left sided chest pain since 5 Am today. She describes the pain as squeezing that is constant and worsens occasionally. She also admits to orthopnea and dyspnea with exertion. Patient takes Lasix but ad mitd she is not alwaysd complaint with it. She took two baby ASA today. She denies cough, fever, and nausea/vomiting, abdomdinal pain. Time Seen by Provider: 05/20/18 13:27 Chief Complaint (Nursing): Chest Pain History Per: Patient History/Exam Limitations: no limitations Onset/Duration Of Symptoms: Hrs, Waxing/Waning Current Symptoms Are (Timing): Still Present Quality: Squeezing Associated Symptoms: Other (Orthopnea ). denies: Nausea Past Medical History Reviewed: Historical Data, Nursing Documentation, Vital Signs Vital Signs: Last Vital Signs Temp 97.5 F L 05/20/18 13:16 Pulse 60 05/20/18 13:39 Resp 18 05/20/18 13:39 BP 142/67 05/20/18 13:39 Pulse Ox 98 05/20/18 13:39 - Medical History PMH: Anxiety, Arthritis, COPD, Depression, HTN, Hypercholesterolemia Denies: Chronic Kidney Disease Surgical History: Cholecystectomy - [facility] Procedures REPLACE OF L HIP JT, FEMORAL WITH SYNTH SUB, OPEN APPROACH (11/11/16) Family History: States: Unknown Family Hx - Social History Hx Tobacco Use: Yes Hx Alcohol Use: No Hx Substance Use: No - Immunization History Hx Tetanus Toxoid Vaccination: No Hx Influenza Vaccination: No Hx Pneumococcal Vaccination: No Review Of Systems Constitutional: Negative for: Fever, Chills Cardiovascular: Positive for: Chest Pain, Orthopnea Respiratory: Positive for: SOB with Excertion. Negative for: Cough Gastrointestinal: Negative for: Nausea Physical Exam - Physical Exam Appears: Well, Non-toxic Skin: Normal Color, Warm, Dry Head: Atraumatic, Normacephalic Eye(s): bilateral: Normal Inspection Oral Mucosa: Moist Throat: Normal Neck: Normal, Supple Chest: Symmetrical, No Tenderness Cardiovascular: Rhythm Regular, No Murmur Respiratory: Rales (at the bases bilaterally ) Gastrointestinal/Abdominal: Normal Exam, Soft, No Tenderness Extremity: Normal ROM, Pedal Edema (+1 pitting edema bilaterally ) Pulses: Left Radial: Normal, Right Radial: Normal, Left Dorsalis Pedis: Normal, Right Dorsalis Pedis: Normal Neurological/Psych: Oriented x3, Normal Speech, Normal Cognition Gait: Steady ED Course And Treatment - Laboratory Results Result Diagrams: 05/20/18 14:09 05/20/18 14:48 ECG: Interpreted By Me ECG Rhythm: Sinus Bradycardia Interpretation Of ECG: Left axis deviation. Q waves in V1 and V2. no acute ST changes. Rate From EC O2 Sat by Pulse Oximetry: 98 (RA) Pulse Ox Interpretation: Normal - Other Rad CXR X-Ray: Interpreted by Me, Read By Radiologist Interpretation: Date of service: 05/20/2018. PROCEDURE: CHEST RADIOGRAPH, 1 VIEW. HISTORY: CP. COMPARISON: Portable chest 07/09/2017. FINDINGS: LUNGS: No interval pulmonary disease appreciated bilaterally. Limited fibrosis again seen left base. PLEURA: No pneumothorax or pleural fluid seen. CARDIOVASCULAR: Stable cardiac silhouette. No pulmonary vascular congestion. OSSEOUS STRUCTURES: No significant abnormalities. VISUALIZED UPPER ABDOMEN: Normal. OTHER FINDINGS: None. IMPRESSION: No interval acute cardiopulmonary disease appreciated. Limited fibrosis again noted left base. Progress Note: Blood work, CXR, and EKG ordered. Aspirin 162mg PO administered. Patient will most likely get admitted. Disposition - Disposition Disposition: HOSPITALIZED - Scribe Statement The provider has reviewed the documentation as recorded by the Scribe (Yue Boss) Provider Attestation: All medical record entries made by the Scribe were at my direction and personally dictated by me. I have reviewed the chart and agree that the record accurately reflects my personal performance of the history, physical exam, medical decision making, and the department course for this patient. I have also personally directed, reviewed, and agree with the discharge instructions and disposition.
--- NOTE | 2018-05-20 17:14 | RAD ---
Date of service: 05/20/2018 PROCEDURE: CHEST RADIOGRAPH, 1 VIEW HISTORY: CP COMPARISON: Portable chest 07/09/2017 FINDINGS: LUNGS: No interval pulmonary disease appreciated bilaterally. Limited fibrosis again seen left base. PLEURA: No pneumothorax or pleural fluid seen. CARDIOVASCULAR: Stable cardiac silhouette. No pulmonary vascular congestion. OSSEOUS STRUCTURES: No significant abnormalities. VISUALIZED UPPER ABDOMEN: Normal. OTHER FINDINGS: None. IMPRESSION: No interval acute cardiopulmonary disease appreciated. Limited fibrosis again noted left base.
[2018-05-20 22:43] LABS: CK-MB 0.77 ng/mL (0.0-3.38)
[2018-05-21 08:23] LABS: CK-MB 0.53 ng/mL (0.0-3.38); TROPONIN I 0.014 ng/mL (0.00-0.120)
[2018-05-21] MEDS: Ranolazine 500 mg Extended Release Tablets PO SCH (09:20)
[2018-05-21] MEDS: Aspirin 325 mg EC Tablets PO SCH (09:20)
[2018-05-21] MEDS ORDERED: Ergocalciferol 50,000 Intl Units Cap PO SCH (10:00)
[2018-05-21] MEDS ORDERED: Enoxaparin 40 mg Syringe SC SCH (10:00)
--- NOTE | 2018-05-21 12:48 | CARD ---
APPROVED REPORT Date of service: 05/20/2018 EKG Measurement Heart [id number] <Conclusion> Sinus bradycardia Left axis deviation Minimal voltage criteria for LVH, may be normal variant Septal infarct, age undetermined Abnormal ECG
--- NOTE | 2018-05-21 17:41 | CP.PCM.HP ---
Past Patient History - Infectious Disease Hx of Infectious Diseases: None - Past Medical History & Family History Past Medical History?: Yes - Past Social History Smoking Status: Current Some Days Smoker - CARDIAC Hx Hypercholesterolemia: Yes Hx Hypertension: Yes - PULMONARY Hx Chronic Obstructive Pulmonary Disease (COPD): Yes - NEUROLOGICAL Hx Neurological Disorder: No - HEENT Hx HEENT Problems: No - RENAL Hx Chronic Kidney Disease: No - ENDOCRINE/METABOLIC Hx Endocrine Disorders: No - HEMATOLOGICAL/ONCOLOGICAL Hx Blood Disorders: Yes Hx Cancer: Yes (Right mastectomy in 1997) - INTEGUMENTARY Hx Dermatological Problems: No - MUSCULOSKELETAL/RHEUMATOLOGICAL Hx Arthritis: Yes - GASTROINTESTINAL Hx Gastrointestinal Disorders: Yes Hx Gastroesophageal Reflux: Yes - GENITOURINARY/GYNECOLOGICAL Hx Genitourinary Disorders: No - PSYCHIATRIC Hx Anxiety: Yes Hx Depression: Yes Hx Substance Use: No - SURGICAL HISTORY Hx Cholecystectomy: Yes - ANESTHESIA Hx Anesthesia: Yes Hx Anesthesia Reactions: No Hx Malignant Hyperthermia: No Meds Allergies/Adverse Reactions: Allergies Allergy/AdvReac Type Severity Reaction Status Date / Time acetaminophen [From Percocet] Allergy RASH Verified 05/20/18 13:21 codeine Allergy RASH Verified 05/20/18 13:21 FISH Allergy RASH Verified 05/20/18 13:21 morphine Allergy RASH Verified 05/20/18 13:21 oxycodone Allergy RASH Verified 05/20/18 13:21 oxycodone HCl [From Percocet] Allergy RASH Verified 05/20/18 13:21 shellfish derived Allergy RASH Verified 05/20/18 13:21 Physical Exam - Constitutional Appears: Well - Head Exam Head Exam: ATRAUMATIC, NORMAL INSPECTION, NORMOCEPHALIC - Eye Exam Eye Exam: EOMI, Normal appearance, PERRL Pupil Exam: NORMAL ACCOMODATION, PERRL - ENT Exam ENT Exam: Mucous Membranes Moist, Normal Exam - Neck Exam Neck exam: Positive for: Normal Inspection - Respiratory Exam Respiratory Exam: Decreased Breath Sounds - Cardiovascular Exam Cardiovascular Exam: REGULAR RHYTHM, +S1, +S2 - GI/Abdominal Exam GI & Abdominal Exam: Diminished Bowel Sounds, Soft - Rectal Exam Rectal Exam: Deferred Results - Vital Signs Recent Vital Signs: Last Vital Signs Temp 97.7 F 05/21/18 15:34 Pulse 60 05/21/18 15:34 Resp 20 05/21/18 15:34 BP 112/62 05/21/18 15:34 Pulse Ox 100 05/21/18 15:34 - Labs Result Diagrams: 05/20/18 14:09 05/20/18 14:48 Labs: Laboratory Results - last 24 hr 05/20/18 05/21/18 22:09 07:44 Total Creatine Kinase 41 36 CK-MB (Mass) 0.77 0.53 Troponin I < 0.0120 0.0140
--- NOTE | 2018-05-21 23:10 | CP.PCM.CON ---
History of Present Illness - History of Present Illness History of Present Illness: 77 year old female complains of left sided chest pain since 5 Am today. She describes the pain as squeezing that is constant and worsens occasionally. She also admits to orthopnea and dyspnea with exertion. Patient takes Lasix but admi td she is not alwaysd complaint with it. She took two baby ASA today. She denies cough, fever, and nausea/vomiting, abdomdinal pain. Chief Complaint (Nursing): Chest Pain History Per: Patient History/Exam Limitations: no limitations Onset/Duration Of Symptoms: Hrs, Waxing/Waning Current Symptoms Are (Timing): Still Present Quality: Squeezing Associated Symptoms: Other (Orthopnea ). denies: Nausea Past Medical History - Medical History PMH: Anxiety, Arthritis, COPD, Depression, HTN, Hypercholesterolemia Denies: Chronic Kidney Disease Surgical History: Cholecystectomy - [facility] Procedures REPLACE OF L HIP JT, FEMORAL WITH SYNTH SUB, OPEN APPROACH (11/11/16) Family History: States: Unknown Family Hx - Social History Hx Tobacco Use: Yes Hx Alcohol Use: No Hx Substance Use: No - Immunization History Hx Tetanus Toxoid Vaccination: No Hx Influenza Vaccination: No Hx Pneumococcal Vaccination: No Review Of Systems Constitutional: Negative for: Fever, Chills Cardiovascular: Positive for: Chest Pain, Orthopnea Respiratory: Positive for: SOB with Excertion. Negative for: Cough Gastrointestinal: Negative for: Nausea Physical Exam - Physical Exam Appears: Well, Non-toxic Skin: Normal Color, Warm, Dry Head: Atraumatic, Normacephalic Eye(s): bilateral: Normal Inspection Oral Mucosa: Moist Throat: Normal Neck: Normal, Supple Chest: Symmetrical, No Tenderness Cardiovascular: Rhythm Regular, No Murmur Respiratory: Rales (at the bases bilaterally ) Gastrointestinal/Abdominal: Normal Exam, Soft, No Tenderness Extremity: Normal ROM, Pedal Edema (+1 pitting edema bilaterally ) Pulses: Left Radial: Normal, Right Radial: Normal, Left Dorsalis Pedis: Normal, Right Dorsalis Pedis: Normal Neurological/Psych: Oriented x3, Normal Speech, Normal Cognition Gait: Steady Past Patient History - Infectious Disease Hx of Infectious Diseases: None - Past Medical History & Family History Past Medical History?: Yes - Past Social History Smoking Status: Current Some Days Smoker - CARDIAC Hx Hypercholesterolemia: Yes Hx Hypertension: Yes - PULMONARY Hx Chronic Obstructive Pulmonary Disease (COPD): Yes - NEUROLOGICAL Hx Neurological Disorder: No - HEENT Hx HEENT Problems: No - RENAL Hx Chronic Kidney Disease: No - ENDOCRINE/METABOLIC Hx Endocrine Disorders: No - HEMATOLOGICAL/ONCOLOGICAL Hx Blood Disorders: Yes Hx Cancer: Yes (Right mastectomy in 1998) - INTEGUMENTARY Hx Dermatological Problems: No - MUSCULOSKELETAL/RHEUMATOLOGICAL Hx Arthritis: Yes - GASTROINTESTINAL Hx Gastrointestinal Disorders: Yes Hx Gastroesophageal Reflux: Yes - GENITOURINARY/GYNECOLOGICAL Hx Genitourinary Disorders: No - PSYCHIATRIC Hx Anxiety: Yes Hx Depression: Yes Hx Substance Use: No - SURGICAL HISTORY Hx Cholecystectomy: Yes - ANESTHESIA Hx Anesthesia: Yes Hx Anesthesia Reactions: No Hx Malignant Hyperthermia: No Meds Allergies/Adverse Reactions: Allergies Allergy/AdvReac Type Severity Reaction Status Date / Time acetaminophen [From Percocet] Allergy RASH Verified 05/20/18 13:21 codeine Allergy RASH Verified 05/20/18 13:21 FISH Allergy RASH Verified 05/20/18 13:21 morphine Allergy RASH Verified 05/20/18 13:21 oxycodone Allergy RASH Verified 05/20/18 13:21 oxycodone HCl [From Percocet] Allergy RASH Verified 05/20/18 13:21 shellfish derived Allergy RASH Verified 05/20/18 13:21 - Medications Medications: Current Medications Alprazolam (Xanax) 1 mg PO HS [facility] Last Admin: 05/21/18 21:32 Dose: 1 mg Amlodipine Besylate (Norvasc) 10 mg PO DAILY [facility] Last Admin: 05/21/18 09:20 Dose: 10 mg Aspirin (Ecotrin) 325 mg PO DAILY [facility] Last Admin: 05/21/18 09:20 Dose: 325 mg Clopidogrel Bisulfate (Plavix) 75 mg PO DAILY [facility] Last Admin: 05/21/18 10:15 Dose: 75 mg Enoxaparin Sodium (Lovenox) 40 mg SC DAILY [facility] Last Admin: 05/21/18 09:20 Dose: 40 mg Ergocalciferol (Drisdol 50,000 Intl Units Cap) 1 cap PO QWK [facility] Last Admin: 05/21/18 09:20 Dose: 1 cap Famotidine (Pepcid) 20 mg PO BID [facility] Last Admin: 05/21/18 17:18 Dose: 20 mg Furosemide (Lasix) 40 mg PO DAILY [facility] Last Admin: 05/21/18 10:14 Dose: 40 mg Hydrochlorothiazide (Hydrodiuril) 25 mg PO DAILY [facility] Last Admin: 05/21/18 09:20 Dose: 25 mg Metoprolol Tartrate (Lopressor) 50 mg PO BID [facility] Last Admin: 05/21/18 17:18 Dose: 50 mg Ranolazine (Ranexa) 1,000 mg PO DAILY [facility] Last Admin: 05/21/18 09:20 Dose: 1,000 mg Rosuvastatin Calcium (Crestor) 5 mg PO HS [facility] Last Admin: 05/21/18 21:32 Dose: 5 mg Results - Vital Signs Recent Vital Signs: Last Vital Signs Temp 97.7 F 05/21/18 15:34 Pulse 60 05/21/18 15:34 Resp 20 05/21/18 15:34 BP 112/62 05/21/18 15:34 Pulse Ox 100 05/21/18 15:34 - Labs Result Diagrams: 05/20/18 14:09 05/20/18 14:48 Labs: Laboratory Results - last 24 hr 05/21/18 07:44 Total Creatine Kinase 36 CK-MB (Mass) 0.53 Troponin I 0.0140 Assessment & Plan - Assessment and Plan (Free Text) Assessment: Patient with recurrent episodes of exertional chest pain Prior stress test negative Multiple risk factors For Cardiac cath in am
[2018-05-22 07:06] LABS: BASO % 0.3 % (0.0-2.0); EOS # 0.1 K/uL (0.0-0.7); EOS % 0.8 % (0.0-4.0); HEMOGLOBIN 13.1 g/dL (11.0-16.0); LYMPH # 1.4 K/uL (1.0-4.3); LYMPH % 22.1 % (20.0-40.0); MEAN CELL VOLUME 92.5 fL (81.0-99.0); MEAN CORPUSCULAR HEMOGLOBIN 31.8 pg (27.0-31.0); MEAN CORPUSCULAR HGB CONC 34.4 g/dL (33.0-37.0); MEAN PLATELET VOLUME 8.7 fL (7.2-11.7); MONO # 0.5 K/uL (0.0-0.8); MONO % 7.4 % (0.0-10.0); NEUT # 4.5 K/uL (1.8-7.0); NEUT % 69.4 % (50.0-75.0); RBC 4.12 Mil/uL (3.80-5.20); RED CELL DISTRIBUTION WIDTH 13.2 % (11.5-14.5); WHITE BLOOD COUNT 6.5 K/uL (4.8-10.8)
[2018-05-22 07:30] VITALS: RESP 20
[2018-05-22] MEDS ORDERED: DiphenhydrAMINE 50 mg/ml Inj ONE (08:18)
[2018-05-22] MEDS ORDERED: Lidocaine 2% MPF (5 ml) Inj ONE (10:17)
[2018-05-22] MEDS ORDERED: Midazolam 2 MG/2 ML VIAL ONE (10:21)
[2018-05-22] MEDS: Aspirin 325 mg EC Tablets PO SCH (11:02)
[2018-05-22] MEDS: Enoxaparin 30 mg Syringe SC SCH (11:03)
[2018-05-22] MEDS: Ranolazine 500 mg Extended Release Tablets PO SCH (11:04)
--- NOTE | 2018-05-22 11:05 | CP.PCM.PN ---
Subjective - Date & Time of Evaluation Date of Evaluation: 05/22/18 Time of Evaluation: 11:03 - Subjective Subjective: patient s/p cath L Main: Patent LAD: Mid 80% L Cx/OM: patent RCA: Dominant and patent EF: 60%, EDP 10, No Plan : PCI of RCA Objective - Vital Signs/Intake and Output Vital Signs (last 24 hours): Temp Pulse Resp BP Pulse Ox 98.4 F 58 L 20 118/64 95 05/22/18 07:00 05/22/18 07:00 05/22/18 07:00 05/22/18 07:00 05/22/18 07:00 - Medications Medications: Current Medications Alprazolam (Xanax) 1 mg PO HS [facility] Last Admin: 05/21/18 21:32 Dose: 1 mg Amlodipine Besylate (Norvasc) 10 mg PO DAILY [facility] Last Admin: 05/21/18 09:20 Dose: 10 mg Aspirin (Ecotrin) 325 mg PO DAILY [facility] Last Admin: 05/21/18 09:20 Dose: 325 mg Clopidogrel Bisulfate (Plavix) 75 mg PO DAILY [facility] Last Admin: 05/21/18 10:15 Dose: 75 mg Enoxaparin Sodium (Lovenox) 30 mg SC DAILY [facility] Ergocalciferol (Drisdol 50,000 Intl Units Cap) 1 cap PO QWK [facility] Last Admin: 05/21/18 09:20 Dose: 1 cap Famotidine (Pepcid) 20 mg PO DAILY [facility] Furosemide (Lasix) 40 mg PO DAILY [facility] Last Admin: 05/21/18 10:14 Dose: 40 mg Hydrochlorothiazide (Hydrodiuril) 25 mg PO DAILY [facility] Last Admin: 05/21/18 09:20 Dose: 25 mg Metoprolol Tartrate (Lopressor) 50 mg PO BID [facility] Last Admin: 05/21/18 17:18 Dose: 50 mg Ranolazine (Ranexa) 1,000 mg PO DAILY [facility] Last Admin: 05/21/18 09:20 Dose: 1,000 mg Rosuvastatin Calcium (Crestor) 5 mg PO HS [facility] Last Admin: 05/21/18 21:32 Dose: 5 mg - Labs Labs: 05/22/18 06:36 05/22/18 06:36 PT 12.4 SECONDS (9.7-12.2) H 05/20/18 14:09 INR 1.1 05/20/18 14:09 APTT 34 SECONDS (21-34) 05/20/18 14:09
--- NOTE | 2018-05-22 20:11 | CP.PCM.PN ---
Subjective - Date & Time of Evaluation Date of Evaluation: 05/22/18 Time of Evaluation: 08:00 - Subjective Subjective: clinically same Objective - Vital Signs/Intake and Output Vital Signs (last 24 hours): Temp Pulse Resp BP Pulse Ox 97.5 F L 97 H 20 125/62 95 05/22/18 16:07 05/22/18 18:29 05/22/18 16:07 05/22/18 18:29 05/22/18 16:07 Intake and Output: 05/22/18 05/23/18 18:59 06:59 Intake Total 450 Balance 450 - Medications Medications: Current Medications Alprazolam (Xanax) 1 mg PO HS [facility] Last Admin: 05/21/18 21:32 Dose: 1 mg Amlodipine Besylate (Norvasc) 10 mg PO DAILY [facility] Last Admin: 05/22/18 11:03 Dose: Not Given Aspirin (Ecotrin) 325 mg PO DAILY [facility] Last Admin: 05/22/18 11:02 Dose: Not Given Clopidogrel Bisulfate (Plavix) 75 mg PO DAILY [facility] Last Admin: 05/22/18 11:04 Dose: Not Given Enoxaparin Sodium (Lovenox) 30 mg SC DAILY [facility] Last Admin: 05/22/18 11:03 Dose: Not Given Ergocalciferol (Drisdol 50,000 Intl Units Cap) 1 cap PO QWK [facility] Last Admin: 05/21/18 09:20 Dose: 1 cap Famotidine (Pepcid) 20 mg PO DAILY [facility] Last Admin: 05/22/18 11:04 Dose: Not Given Hydrochlorothiazide (Hydrodiuril) 25 mg PO DAILY [facility] Last Admin: 05/22/18 11:03 Dose: Not Given Sodium Chloride (Sodium Chloride 0.9%) 1,000 mls @ 70 mls/hr IV .[id number] [facility] Stop: 05/23/18 23:59 Metoprolol Tartrate (Lopressor) 50 mg PO BID [facility] Last Admin: 05/22/18 18:31 Dose: 50 mg Ranolazine (Ranexa) 1,000 mg PO DAILY [facility] Last Admin: 05/22/18 11:04 Dose: Not Given Rosuvastatin Calcium (Crestor) 5 mg PO HS [facility] Last Admin: 05/21/18 21:32 Dose: 5 mg - Labs Labs: 05/22/18 06:36 05/22/18 06:36 PT 12.4 SECONDS (9.7-12.2) H 05/20/18 14:09 INR 1.1 05/20/18 14:09 APTT 34 SECONDS (21-34) 05/20/18 14:09
[2018-05-23] MEDS: Sodium Chloride 0.9% 1,000 ML IV SCH ×2 (02:58→06:28)
[2018-05-23 07:23] LABS: MEAN CELL VOLUME 92.5 fL (81.0-99.0); MEAN CORPUSCULAR HEMOGLOBIN 31.5 pg (27.0-31.0); MEAN PLATELET VOLUME 8.6 fL (7.2-11.7); RBC 4.13 Mil/uL (3.80-5.20); RED CELL DISTRIBUTION WIDTH 12.9 % (11.5-14.5)
[2018-05-23 07:25] LABS: WHITE BLOOD COUNT 11.3 K/uL (4.8-10.8)
[2018-05-23 07:44] LABS: BLOOD UREA NITROGEN 24 mg/dL (7-17); CALCIUM 8.8 mg/dl (8.6-10.4); GFR NON-AFRICAN AMERICAN > 60
[2018-05-23] MEDS: Ranolazine 500 mg Extended Release Tablets PO SCH (09:57)
[2018-05-23] MEDS: Aspirin 325 mg EC Tablets PO SCH (09:58)
[2018-05-23] MEDS: Enoxaparin 30 mg Syringe SC SCH (10:05)
[2018-05-23 15:32] VITALS: PULSE 62
[2018-05-23 15:57] VITALS: BP 114/58; TEMP 98; O2SAT 97
--- NOTE | 2018-05-23 17:11 | CP.PCM.PN ---
Subjective - Date & Time of Evaluation Date of Evaluation: 05/23/18 Time of Evaluation: 10:50 - Subjective Subjective: [employer] NOTES Patient seen today, denies any chest pain , sob, dizziness, palpitations vss and labs reviewed - stable troponin x 3 - negative s/p cardiac cath yesterday , L Main: Patent,LAD: Mid 80%,L Cx/OM: patent,RCA: Dominant and patentEF: 60%, an d plan for PCI outpatient Objective - Vital Signs/Intake and Output Vital Signs (last 24 hours): Temp Pulse Resp BP Pulse Ox 98.0 F 62 20 114/58 L 97 05/23/18 15:00 05/23/18 15:27 05/23/18 15:00 05/23/18 15:00 05/23/18 15:00 Intake and Output: 05/23/18 05/23/18 06:59 18:59 Intake Total 960 Balance 960 - Medications Medications: Current Medications Alprazolam (Xanax) 1 mg PO HS [facility] Last Admin: 05/22/18 21:42 Dose: 1 mg Amlodipine Besylate (Norvasc) 10 mg PO DAILY [facility] Last Admin: 05/23/18 09:58 Dose: 10 mg Aspirin (Ecotrin) 325 mg PO DAILY [facility] Last Admin: 05/23/18 09:58 Dose: 325 mg Clopidogrel Bisulfate (Plavix) 75 mg PO DAILY [facility] Last Admin: 05/23/18 09:57 Dose: 75 mg Enoxaparin Sodium (Lovenox) 30 mg SC DAILY [facility] Last Admin: 05/23/18 10:05 Dose: 30 mg Ergocalciferol (Drisdol 50,000 Intl Units Cap) 1 cap PO QWK [facility] Last Admin: 05/21/18 09:20 Dose: 1 cap Famotidine (Pepcid) 20 mg PO DAILY [facility] Last Admin: 05/23/18 09:58 Dose: 20 mg Hydrochlorothiazide (Hydrodiuril) 25 mg PO DAILY [facility] Last Admin: 05/23/18 09:57 Dose: 25 mg Sodium Chloride (Sodium Chloride 0.9%) 1,000 mls @ 70 mls/hr IV .[id number] [facility] Stop: 05/23/18 23:59 Last Admin: 05/23/18 06:28 Dose: 70 mls/hr Metoprolol Tartrate (Lopressor) 50 mg PO BID [facility] Last Admin: 05/23/18 09:56 Dose: Not Given Ranolazine (Ranexa) 1,000 mg PO DAILY [facility] Last Admin: 05/23/18 09:57 Dose: 1,000 mg Rosuvastatin Calcium (Crestor) 5 mg PO HS [facility] Last Admin: 05/22/18 21:42 Dose: 5 mg - Labs Labs: 05/23/18 07:09 05/23/18 07:09 PT 12.4 SECONDS (9.7-12.2) H 05/20/18 14:09 INR 1.1 05/20/18 14:09 APTT 34 SECONDS (21-34) 05/20/18 14:09 Assessment and Plan - Assessment and Plan (Free Text) Assessment: A/P 77 yr old female with pmhx of Anxiety, Arthritis, COPD, Depression, HTN, Hypercholesterolemia admitted with left sided chest lynch s/p cardiac cath with LAD: Mid 80% and plan for [employer] to RCA outpatient Patient seen today with Dr. Pinto, discussed plan (PCI OUT PT AT [facility]) with [facility] over the phone by Dr. Pinto and cleared fro discharge home today from cardiology standpoint and f/u with Dr. pinto office on Monday D/w Dr. Blackwell , cleared for discharge home today Patient instructed to returns to ED if symptoms returns or worsening of symptoms
--- NOTE | 2018-05-23 22:42 | CP.PCM.PN ---
Subjective - Date & Time of Evaluation Date of Evaluation: 05/23/18 Time of Evaluation: 12:05 - Subjective Subjective: Pateint seen and evaluated Denies chest pain and dyspnea Hx Pneumococcal Vaccination: No Review Of Systems Constitutional: Negative for: Fever, Chills Cardiovascular: Positive for: Chest Pain, Orthopnea Respiratory: Positive for: SOB with Excertion. Negative for: Cough Gastrointestinal: Negative for: Nausea Physical Exam - Physical Exam Appears: Well, Non-toxic Skin: Normal Color, Warm, Dry Head: Atraumatic, Normacephalic Eye(s): bilateral: Normal Inspection Oral Mucosa: Moist Throat: Normal Neck: Normal, Supple Chest: Symmetrical, No Tenderness Cardiovascular: Rhythm Regular, No Murmur Respiratory: Rales (at the bases bilaterally ) Gastrointestinal/Abdominal: Normal Exam, Soft, No Tenderness Extremity: Normal ROM, Pedal Edema (+1 pitting edema bilaterally ) Pulses: Left Radial: Normal, Right Radial: Normal, Left Dorsalis Pedis: Normal, Right Dorsalis Pedis: Normal Neurological/Psych: Oriented x3, Normal Speech, Normal Cognition Gait: Steady Assessment & Plan - Assessment and Plan (Free Text) Assessment: Patient s/p Cath LAD PCI as out patient Objective - Vital Signs/Intake and Output Vital Signs (last 24 hours): Temp Pulse Resp BP Pulse Ox 98.0 F 62 20 114/58 L 97 05/23/18 15:00 05/23/18 15:27 05/23/18 15:00 05/23/18 15:00 05/23/18 15:00 - Labs Labs: 05/23/18 07:09 05/23/18 07:09 PT 12.4 SECONDS (9.7-12.2) H 05/20/18 14:09 INR 1.1 05/20/18 14:09 APTT 34 SECONDS (21-34) 05/20/18 14:09
== END 2018-05-23 18:10 | disposition home or self-care (01) | DRG 287 ==
LOC: C.ER 13:03 → C.9E 16:10 → C.5S 16:48 → OBSVTOIN 05-22 16:33
PROVIDERS: ADMIT Internal Medicine Nephrology; ATTEND Internal Medicine Nephrology
PROC: 4A023N7 Measurement of Cardiac Sampling and Pressure, Left Heart, Percutaneous Approach (ICD-10-PCS; principal; 2018-05-22)
PROC: B211YZZ Fluoroscopy of Multiple Coronary Arteries using Other Contrast (ICD-10-PCS; 2018-05-22)
PROC: B215YZZ Fluoroscopy of Left Heart using Other Contrast (ICD-10-PCS; 2018-05-22)
DX: I25.10 Atherosclerotic heart disease of native coronary artery without angina pectoris (principal); I10 Essential (primary) hypertension; E78.00 Pure hypercholesterolemia, unspecified; J44.9 Chronic obstructive pulmonary disease, unspecified; F41.9 Anxiety disorder, unspecified; F32.9 Major depressive disorder, single episode, unspecified; M19.90 Unspecified osteoarthritis, unspecified site; F17.210 Nicotine dependence, cigarettes, uncomplicated; Z90.49 Acquired absence of other specified parts of digestive tract; K21.9 Gastro-esophageal reflux disease without esophagitis